=== PATIENT | male | born 1955 | race Asian ===

== ENCOUNTER 2017-05-08 19:32 | Inpatient (IN) | payer OTHER ==
[~2017-05-08] VITALS: Ht 165.1 cm; Wt 73.7 kg
[2017-05-08] MEDS ORDERED: NITROGLYCERIN (SL) 0.4 MG TAB SL PRN (20:00)
[2017-05-08 20:15] LABS: BASOPHILS % 0.4 % (0.0-2.0); EOSINOPHILS # 0.2 10^3/ul (0.0-0.5); EOSINOPHILS % 3.9 % (0.0-7.0); HEMATOCRIT 41.9 % (42.0-52.0); HEMOGLOBIN 14.1 g/dl (14.0-18.0); LYMPHOCYTES # 1.5 10^3/ul (0.8-2.9); LYMPHOCYTES % 29.8 % (15.0-51.0); MEAN CORPUSCULAR HEMOGLOBIN 32.4 pg (29.0-33.0); MEAN CORPUSCULAR HGB CONC 33.7 g/dl (32.0-37.0); MEAN CORPUSCULAR VOLUME 96.3 fl (82.0-101.0); MEAN PLATELET VOLUME 11.3 fl (7.4-10.4); MONOCYTE # 0.4 10^3/ul (0.3-0.9); MONOCYTES % 8.6 % (0.0-11.0); NEUTROPHILS % 57.1 % (39.0-77.0); PLATELET COUNT 179 10^3/UL (140-415); RED BLOOD COUNT 4.35 10^6/ul (4.70-6.10); RED CELL DISTRIBUTION WIDTH 11.4 % (11.5-14.5); WHITE BLOOD COUNT 4.9 10^3/ul (4.8-10.8)
[2017-05-08 20:31] LABS: INR 0.95; PROTIME 12.7 Sec (12.2-14.2)
[2017-05-08 20:32] LABS: PARTIAL THROMBOPLASTIN TIME 30.4 Sec (25.0-35.0)
[2017-05-08 20:44] LABS: ANION GAP 12 (8-16); BLOOD UREA NITROGEN 8 mg/dl (7-20); CALCIUM 9.4 mg/dl (8.4-10.2); CARBON DIOXIDE 29 mmol/L (21-31); CHLORIDE 103 mmol/L (97-110); CREATININE 0.83 mg/dl (0.61-1.24); GLUCOSE 105 mg/dl (70-220); POTASSIUM 3.9 mmol/L (3.5-5.1); SODIUM 140 mmol/L (135-144)
[2017-05-08] MEDS ORDERED: ASPI325T32 PO (20:44)
[2017-05-08] MEDS ORDERED: CLOP75TA4 PO (20:47)
[2017-05-08] MEDS ORDERED: ATOR40TA68 PO (20:47)
--- NOTE | 2017-05-08 20:54 | RADRPT ---
PROCEDURE: Chest x-ray CLINICAL INDICATION: Chest pain TECHNIQUE: Chest single view COMPARISON: None FINDINGS: The heart is normal in size. The pulmonary vessels are normal in caliber. The lungs are clear. Th e costophrenic angles are sharp. The visualized bony thorax is unremarkable. IMPRESSION: No acute cardiopulmonary disease. RPTAT: HH .Dax Rocha MD, Date Time Electronically viewed and signed by .Dax Rocha MD, MD on 05/08/2017 20:53 .W/
[2017-05-08 20:59] LABS: TROPONIN-I < 0.012 ng/ml (0.00-0.12)
--- NOTE | 2017-05-08 21:18 | ERA ---
ER Documentation Chief Complaint Date/Time DATE: 05/08/17 TIME: 21:15 Chief Complaint BIB RA89 FROM HOME C/O SOB AND CP X 2 DAYS HPI This is a 61-year-old male who presents to the emergency room for evaluation of shortness of breath and chest pain for the past 2 days. The patient states that his chest pain is centralized with no radiation sometimes worse with exertion. He states that in February he was having chest pain and he was taken to an emergency room in [facility] where he had 2 stents placed. The patient states that he was told that he needs to have more stents placed however they could not place a signs at that time ROS All systems reviewed and are negative except as per history of present illness. Medications Home Meds Reported Medications Clopidogrel Bisulfate* (Clopidogrel Bisulfate*) 75 Mg Tablet, 75 MG PO DAILY, # 30 TAB 05/08/17 Atorvastatin* (Atorvastatin*) 40 Mg Tablet, 40 MG PO QHS, #30 TAB 05/08/17 Aspirin* (Aspirin* EC) 325 Mg Tab, 325 MG PO DAILY, TAB 05/08/17 Allergies Allergies: Coded Allergies: No Known Allergy (Unverified , 05/08/17) PMhx/Soc History of Surgery: Yes (stentx4) Anesthesia Reaction: No Hx Neurological Disorder: No Hx Respiratory Disorders: No Hx Cardiac Disorders: No Hx Psychiatric Problems: No Hx Miscellaneous Medical Probl: No Hx Alcohol Use: No Hx Substance Use: No Hx Tobacco Use: No Smoking Status: Never smoker Physical Exam Vitals Vital Signs Date Time Temp Pulse Resp B/P Pulse Ox O2 Delivery O2 Flow Rate FiO2 05/08/17 20:32 63 139/84 05/08/17 20:17 Nasal Cannula 2 05/08/17 19:34 98.1 68 18 167/82 99 Physical Exam INITIAL VITAL SIGNS: Reviewed by me GENERAL: The patient is well developed and appropriate for usual state of health in no apparent distress HEENT: Pupils equal, round, and reactive to light. EOMI. There is no scleral icterus. NECK: C-spine is soft and supple, there is no meningismus. There is no cervical lymphadenopathy. LUNGS: Clear to auscultation bilaterally. There are no rales, wheezes or rhonchi. HEART: Regular rate and rhythm, no murmurs, clicks, rubs or gallops. ABDOMEN: Soft, non-tender, non-distended. There are bowel sounds in all four quadrants. No rebound or guarding. EXTREMITIES: There is no peripheral cyanosis or edema. No focal swelling or erythema. NEUROLOGICAL: The patient moves all four extremities with 5/5 strength. Cranial nerves II - XII are intact. Normal gait. Alert and oriented SKIN: There is no apparent rash or petechiae. HEME/LYMPHATIC: There is no evidence of excessive bruising or lymphedema. PSYCHIATRIC: The patient does not appear anxious or depressed. Result Diagram: 05/08/17200605/08/172006 Results 24 hrs Laboratory Tests Test 05/08/17 20:07 White Blood Count 4.910^3/ul Red Blood Count 4.3510^6/ul Hemoglobin 14.1g/dl Hematocrit 41.9% Mean Corpuscular Volume 96.3fl Mean Corpuscular Hemoglobin 32.4pg Mean Corpuscular Hemoglobin Concent 33.7g/dl Red Cell Distribution Width 11.4% Platelet Count 61831^3/UL Mean Platelet Volume 11.3fl Neutrophils % 57.1% Lymphocytes % 29.8% Monocytes % 8.6% Eosinophils % 3.9% Basophils % 0.4% Nucleated Red Blood Cells % 0.0/100WBC Neutrophils # (Manual) 310^3/ul Lymphocytes # 1.510^3/ul Monocytes # 0.410^3/ul Eosinophils # 0.210^3/ul Basophils # 0.010^3/ul Nucleated Red Blood Cells # 0.010^3/ul Prothrombin Time 12.7Sec Prothrombin Time Ratio 1.0 INR International Normalized Ratio 0.95 Activated Partial Thromboplast Time 30.4Sec Sodium Level 140mmol/L Potassium Level 3.9mmol/L Chloride Level 103mmol/L Carbon Dioxide Level 29mmol/L Anion Gap 12 Blood Urea Nitrogen 8mg/dl Creatinine 0.83mg/dl Glucose Level 105mg/dl Calcium Level 9.4mg/dl Troponin I < 0.012ng/ml Current Medications Medications (Trade) Dose Ordered Sig/Anderson Route PRN Reason Start Time Stop Time Status Last Admin Dose Admin Nitroglycerin (Nitroglycerin (Sl Tab) 0.4 Mg) 1 tab Q5M UP TO 3 DOSES PRN SL CHEST PAIN 05/08/17 20:00 Procedures/MDM EKG: Rate/Rhythm: [Normal Sinus Rhythm with sinus arrhythmia] QRS, ST, T-waves: [No changes consistent w/ acute ischemia] Impression: Was normal sinus rhythm with sinus arrhythmia Chest X-ray 1V Interpreted by me: Soft Tissue: No acute abnormalities Bones: No acute abnormalities Mediastinum/Cardiac Silhouette/Lungs: [No acute abnormalities] This 61-year-old male presents to the ER for evaluation of chest pain and minor shortness of breath. This patient does have a significant cardiac history with 2 stents placed in the past 2 months. The patient did take a full dose aspirin before arriving in the emergency room. His pain is minorly relieved with sublingual nitroglycerin. His first troponin is negative. 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
[2017-05-08] MEDS ORDERED: ONDANSETRON 4 MG INJ IV PRN (21:30)
[2017-05-08] MEDS ORDERED: ACETAMINOPHEN 325 MG TAB PO PRN ×2 (21:30→23:30)
[2017-05-08 22:30] VITALS: Ht 165.1 cm; Wt 73.7 kg
[2017-05-08 22:44] VITALS: PULSE 56
[2017-05-08] MEDS ORDERED: LORAZEPAM 2 MG INJ IV PRN (23:30)
[2017-05-09] VITALS (15 sets, daily range): BP systolic 117–142; BP diastolic 63–80; PULSE 55–68; RESP 16–20
[2017-05-09 03:40] LABS: TROPONIN-I 0.015 ng/ml (0.00-0.12)
[2017-05-09 03:53] LABS: CK-MB 0.78 ng/ml (0.0-2.4)
--- NOTE | 2017-05-09 05:38 | HP ---
Date/Time of Note Date/Time of Note DATE: 05/09/17 TIME: 05:24 Assessment/Plan VTE Prophylaxis VTE Prophylaxis Intervention: heparin Lines/Catheters IV Catheter Type (from [facility]): [place] Assessment/Plan Assessment/Plan 1. Chest pain, rule out ACS -Continue telemetry monitoring -Continue home Plavix, aspirin and statin. Will add as needed nitro and morphine. If heart rate allows, will start beta-olive -Supplemental oxygen -2D echo and cardiology consult -Cardiac cath report is at the bedside. 2. History of CAD with stent -See #1 3. History of sleep apnea -Continue CPAP with home settings 4. History of dyslipidemia -Continue statin HPI/ROS Admit Date/Time Admit Date/Time May 08, 2017 at 21:15 Hx of Present Illness This is a 61-year-old male with a history of CAD with stent ID, dyslipidemia, sleep apnea on CPAP who presented to the emergency department complaining of chest pain and shortness of breath. Chest pain is substernal, with no radiation and it is worse with exertion. Denied nausea, vomiting or diaphoresis. Patient reported that 2 months ago he was hospitalized for chest pain in [place] where he underwent PCI with placement of 4 stents including to RCA for 100% occlusion. He said he was told that he needs additional cardiac stents for residual disease and LAD and circumflex(it was not done at that time because it was felt that the patient had already received a good amount of contrast). He has been compliant with his aspirin, Plavix and statin. When he presented to the ER, BP 167/82 with a heart rate of 68, but heart rate has been noted to be at times as low as in the 50s. EKG shows arrhythmia. First troponin is negative. Chest x-ray with no active cardiopulmonary disease. Chest pain did improve with SL nitro, but not completely relieved. . PMH/Family/Social Past Medical History Medical History: coronary artery disease, high cholesterol Past Surgical History Past Surgical Hx: other (Cardiac stent placement) Social History Alcohol Use: occasionally Smoking Status: Never smoker Drug Use: none Exam/Review of Systems Vital Signs Vitals Vital Signs Date Time Temp Pulse Resp B/P Pulse Ox O2 Delivery O2 Flow Rate FiO2 05/09/17 04:32 97.5 86 16 134/71 100 05/08/17 21:52 Room Air 05/08/17 20:17 2 Exam Constitutional: alert, oriented, well developed Head: atraumatic, normocephalic Eyes: EOMI, PERRL Respiratory: clear to auscultation, normal air movement Cardiovascular: other (Bradycardic with regular rhythm) Gastrointestinal: non-tender, soft Extremities: normal pulses Labs Result Diagram: 05/08/17200605/08/172006 Medications Medications Current Medications Aspirin (Ecotrin) 325 mg DAILY PO ; Start 05/09/17 at 09:00 Atorvastatin Calcium (Lipitor) 40 mg QHS PO ; Start 05/09/17 at 21:00 Clopidogrel Bisulfate (plaVIX) 75 mg DAILY PO ; Start 05/09/17 at 09:00 Acetaminophen (Tylenol Tab) 650 mg Q6H PRN PO PAIN AND OR ELEVATED TEMP; Start 05/08/17 at 23:30 Lorazepam (Ativan) 1 mg Q2 PRN IV ANXIETY; Start 05/08/17 at 23:30 MIK JUNIOR MD May 09, 2017 05:36
[2017-05-09 07:01] LABS: BASOPHILS % 0.4 % (0.0-2.0); EOSINOPHILS # 0.2 10^3/ul (0.0-0.5); EOSINOPHILS % 4.2 % (0.0-7.0); HEMATOCRIT 40.9 % (42.0-52.0); HEMOGLOBIN 13.7 g/dl (14.0-18.0); LYMPHOCYTES # 1.6 10^3/ul (0.8-2.9); LYMPHOCYTES % 33.3 % (15.0-51.0); MEAN CORPUSCULAR HEMOGLOBIN 32.1 pg (29.0-33.0); MEAN CORPUSCULAR HGB CONC 33.5 g/dl (32.0-37.0); MEAN CORPUSCULAR VOLUME 95.8 fl (82.0-101.0); MEAN PLATELET VOLUME 11.7 fl (7.4-10.4); MONOCYTE # 0.3 10^3/ul (0.3-0.9); MONOCYTES % 6.7 % (0.0-11.0); PLATELET COUNT 186 10^3/UL (140-415); RED BLOOD COUNT 4.27 10^6/ul (4.70-6.10); RED CELL DISTRIBUTION WIDTH 11.9 % (11.5-14.5); WHITE BLOOD COUNT 4.8 10^3/ul (4.8-10.8)
[2017-05-09 07:22] LABS: ALBUMIN 3.8 g/dl (3.3-4.9); ALBUMIN/GLOBULIN RATIO 1.22; BILIRUBIN,INDIRECT 0.6 mg/dl (0-1.1); BILIRUBIN,TOTAL 0.6 mg/dl (0.2-1.3); CALCIUM 9.3 mg/dl (8.4-10.2); CHOL/HDL RATIO 2.6 RATIO; CREATININE 0.81 mg/dl (0.61-1.24); POTASSIUM 3.7 mmol/L (3.5-5.1); TOTAL PROTEIN 6.9 g/dl (6.1-8.1); TROPONIN-I 0.015 ng/ml (0.00-0.12)
[2017-05-09 07:23] LABS: CK-MB 0.68 ng/ml (0.0-2.4)
[2017-05-09 07:45] LABS: THYROID STIMULATING HORMONE 1.4 MIU/L (0.465-4.680)
[2017-05-09] MEDS: CLOPIDOGREL 75 MG TAB PO SCH (08:19)
[2017-05-09] MEDS ORDERED: ASPIRIN (EC) 325 MG TAB PO SCH (09:00)
--- NOTE | 2017-05-09 10:47 | RADRPT ---
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 Physician: MIK JUNIOR Quality: Good Procedures: Transthoracic echocardiogram with complete 2D, M-Mode, and doppler examination. Indications: Chest Pain, recent stent. 2D/M Mode Doppler Measurement Value Normal Ranges Measurement Value Normal Ranges LVIDd 2D 5.3 3.5 - 5.6 cm AV Peak Riaz 1.2 m/sec LVIDs 2D 3.6 2.1 - 4.1 cm AV Peak PG 5.0 mmHg FS 2D 32.1 % LVOT Peak Riaz 0.8 m/sec LVPWd 2D 0.8 0.6 - 1.1 cm LVOT Peak PG 3.0 mmHg IVSd 2D 0.8 0.6 - 1.1 cm MV E Peak Riaz 0.6 m/sec IVS/LVPW 2D 1.0 MV A Peak Riaz 0.6 m/sec AoR Diam 2D 3.1 2.0 - 3.7 cm MV E/A 0.9 LA/Ao 2D 1 0 - 1 MV Decel Time 268 msec EDV 2D 146.0 cm3 MV E/A 0.9 ESV 2D 45.9 cm3 TR Peak Riaz 1.7 m/sec LA Dimen 2D 3.2 2.3 - 4.0 cm TR Peak PG 12.0 mmHg RVSP 15.0 mmHg Findings Left Ventricle: Normal left ventricular systolic function. Normal left ventricular cavity size. Normal left ventricular wall thickness. Ejection fraction is visually estimated at 55 %. Tissue Doppler/Mitral Doppler indices are consistent with impaired relaxation (Stage I diastolic dysfunction). Right Ventricle: Normal right ventricular size. Normal right ventricular systolic function. Left Atrium: The left atrium is normal in size. Right Atrium: The right atrium is normal in size. Mitral Valve: Mitral valve leaflets appear mildly thickened. Mild mitral annular calcification. Trace mitral regurgitation. Aortic Valve: Normal appearance of the aortic valve. No significant aortic stenosis or insufficiency. Tricuspid Valve: Normal appearance of the tricuspid valve. Estimated peak PA systolic pressure 15 mmHg. There is trace tricuspid regurgitation. Pulmonic Valve: Normal pulmonic valve appearance. Pericardium: Normal pericardium with no significant pericardial effusion. Aorta: Normal aortic root. IVC: Normal size and normal respiratory collapse consistent with normal right atrial pressure. Conclusions Normal left ventricular systolic function. Normal left ventricular cavity size. Normal left ventricular wall thickness. Ejection fraction is visually estimated at 55 %. Tissue Doppler/Mitral Doppler indices are consistent with impaired relaxation (Stage I diastolic dysfunction). Normal right ventricular size. Normal right ventricular systolic function. The left atrium is normal in size. The right atrium is normal in size. No significant valvular stenosis or regurgitation seen. Normal pericardium with no significant pericardial effusion. Electronically Signed By: Maynor Amanda 09-May-2017 10:46:39 -0700 Patient Name: MIKE MUNOZ Study Date: 09-May-2017 [id number]
--- NOTE | 2017-05-09 12:48 | CONS ---
Date/Time of Note Date/Time of Note DATE: 05/09/17 TIME: 12:42 Assessment/Plan Assessment/Plan Additional Assessment/Plan Shortness of breath and chest pain CAD with history of PCI Preserved ejection fraction Hypertension -Patient with symptoms of shortness of breath occasion with exertion sometimes at rest as well with atypical chest pain. As per the patient, he is awaiting further PCI of his other vessels. Will review cath report, so far serial cardiac enzymes remain negative, ECG without any significant ischemic abnormalities. Echocardiogram with preserved ejection fraction. Would continue dual antiplatelet therapy, statin therapy, beta-blockers heart rate and blood pressure permits. Consultation Date/Type/Reason Admit Date/Time May 08, 2017 at 21:15 Type of Consultation: cv Reason for Consultation Shortness of breath and chest pain Hx of Present Illness This is a 61-year-old male with past medical history of coronary artery disease with recent PCI a few months ago, hypertension who presents with complaints of chest pain and shortness of breath. Patient states he had stent placement a few months ago emergently secondary to myocardial infarction. At that time, he was told he had other vessels that needed intervention. 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 He has been awaiting insurance approval for further testing before planning to do intervention. In the interim, patient has been complaining of shortness of breath. Shortness of breath is not always associated with activity but at times is. He feels he cannot take in a deep breath. He also complains of a sharp-like chest discomfort on the left side. This chest discomfort is not associated with activity. He denies any dizziness or lightheadedness. Symptoms of shortness of breath worsened yesterday and for this reason he came to the emergency room for further evaluation and care. He states he has been compliant with his medications, especially aspirin and Plavix. 12 point review of systems was performed with all pertinent positives and negatives mentioned above and all else is negative Past Medical History Medical History: coronary artery disease, high cholesterol, hypertension Past Surgical History Past Surgical Hx: other (Cardiac stent placement) Family History Significant Family History: no pertinent family hx Social History Alcohol Use: occasionally Smoking Status: Never smoker Drug Use: none Exam/Review of Systems Vital Signs Vitals Vital Signs Date Time Temp Pulse Resp B/P Pulse Ox O2 Delivery O2 Flow Rate FiO2 05/09/17 12:13 68 05/09/17 11:13 98.0 18 141/75 97 8/18/17 08:00 Nasal Cannula 2.0 Intake and Output 05/08/17 05/08/17 05/09/17 15:00 23:00 07:00 Intake Total 700 ml Balance 700 ml Exam No apparent distress Constitutional: alert, oriented Head: normocephalic Neck: supple Respiratory: other (Coarse breath sounds bilaterally, no wheezing) Cardiovascular: other (S1-S2 heard), regular rate and rhythm Gastrointestinal: bowel sounds, non-tender, soft Extremities: other (No edema) Results Result Diagram: 05/09/1760405/09/17604 Results 24 hrs Laboratory Tests Test 05/08/17 20:07 05/09/17 02:42 05/09/17 06:05 White Blood Count 4.9 4.8 Red Blood Count 4.35 L 4.27 L Hemoglobin 14.1 13.7 L Hematocrit 41.9 L 40.9 L Mean Corpuscular Volume 96.3 95.8 Mean Corpuscular Hemoglobin 32.4 32.1 Mean Corpuscular Hemoglobin Concent 33.7 33.5 Red Cell Distribution Width 11.4 L 11.9 Platelet Count 179 186 Mean Platelet Volume 11.3 H 11.7 H Neutrophils % 57.1 55.0 Lymphocytes % 29.8 33.3 Monocytes % 8.6 6.7 Eosinophils % 3.9 4.2 Basophils % 0.4 0.4 Nucleated Red Blood Cells % 0.0 0.0 Neutrophils # (Manual) 3 3 Lymphocytes # 1.5 1.6 Monocytes # 0.4 0.3 Eosinophils # 0.2 0.2 Basophils # 0.0 0.0 Nucleated Red Blood Cells # 0.0 0.0 Prothrombin Time 12.7 Prothrombin Time Ratio 1.0 INR International Normalized Ratio 0.95 Activated Partial Thromboplast Time 30.4 Sodium Level 140 146 H Potassium Level 3.9 3.7 Chloride Level 103 103 Carbon Dioxide Level 29 27 Anion Gap 12 20 #H Blood Urea Nitrogen 8 10 Creatinine 0.83 0.81 Glucose Level 105 122 Calcium Level 9.4 9.3 Troponin I < 0.012 0.015 0.015 Creatine Kinase 50 50 Creatine Kinase Index 1.6 1.4 Creatinine Kinase MB (Mass) 0.78 0.68 Hemoglobin A1c 5.9 Total Bilirubin 0.6 Direct Bilirubin 0.00 Indirect Bilirubin 0.6 Aspartate Amino Transf (AST/SGOT) 35 Alanine Aminotransferase (ALT/SGPT) 39 Alkaline Phosphatase 67 Total Protein 6.9 Albumin 3.8 Globulin 3.10 Albumin/Globulin Ratio 1.22 Triglycerides Level 121 Cholesterol Level 86 L LDL Cholesterol, Calculated 29 HDL Cholesterol 33 Cholesterol/HDL Ratio 2.6 Thyroid Stimulating Hormone (TSH) 1.400 Medications Medications Current Medications Aspirin (Ecotrin) 325 mg DAILY PO Last administered on 05/09/17 08:19; Admin Dose 325 MG; Start 05/09/17 at 09:00 Atorvastatin Calcium (Lipitor) 40 mg QHS PO ; Start 05/09/17 at 21:00 Clopidogrel Bisulfate (plaVIX) 75 mg DAILY PO Last administered on 05/09/17 08 :19; Admin Dose 75 MG; Start 05/09/17 at 09:00 Acetaminophen (Tylenol Tab) 650 mg Q6H PRN PO PAIN AND OR ELEVATED TEMP; Start 05/08/17 at 23:30 Lorazepam (Ativan) 1 mg Q2 PRN IV ANXIETY; Start 05/08/17 at 23:30 Procedures Procedures ECG demonstrates sinus rhythm, incomplete right bundle branch block, nonspecific T-wave abnormalities Maynor Amanda DO May 09, 2017 12:47
[2017-05-09] MEDS: LISINOPRIL 5 MG TAB PO SCH (14:19)
[2017-05-09] MEDS ORDERED: MIDAZOLAM 1 MG/ML 2 ML INJ ONE (17:56)
[2017-05-09] MEDS ORDERED: IODIXANOL LOCM 100 ML BTL ONE ×2 (17:56→18:50)
[2017-05-09] MEDS ORDERED: HEPARIN 1000 UNITS/NS (A-LINE) 1,000 ML ONE (17:56)
[2017-05-09] MEDS ORDERED: LIDOCAINE 1% (MDV) 20 ML INJ ONE (17:56)
[2017-05-09] MEDS ORDERED: VERAPAMIL 5 MG INJ ONE (17:57)
[2017-05-09] MEDS ORDERED: FENTAnyl 50 MCG/ML VIAL ONE (18:49)
[2017-05-09] MEDS ORDERED: CLOPIDOGREL 300 MG TAB ONE (19:45)
[2017-05-09] MEDS ORDERED: SOD CHLORIDE 0.9% 1,000 ML IV SCH (19:53)
--- NOTE | 2017-05-09 20:10 | OPR ---
Date/Time of Note Date/Time of Note DATE: 05/09/17 TIME: 20:01 Operative Report Procedure Date: May 09, 2017 Indications Fish Seiner: Lorrie Araiza MD Indication: ACS. known severe CAD Procure performed: #1 left heart catheterization and selective right and left coronary angiogram. #2 Right femoral angiogram 3. Successful PTCA and stenting of distal left circumflex artery using a 2.5 x 20 mm Synergy drug-eluting stent, and proximal./ mid left cecum was artery using a 2.75 x 24 mm Synergy drug-eluting stent. 4. Moderate sedation for more than 90 minutes Findings: 1. Left main: is long and has 30% ostial stenosis. it birfurcates to LAD & LCX. 2. LAD: has 50 % stenosis at proximal LAD, and 90 % stenosis at mid LAD, at the site of a moderate-sized diagonal.. 3. Left circumflex artery: is nondominant. it has 95% % stenosis right before the takeoff of the obtuse marginal 1. Distal left circumflex artery also had another 80% calcified lesion. After successful PTCA stenting of this lesion was delivered no significant residual stenosis left. 4. RCA: is dominant. it has 20% stenosis. Previous 4 stents are otherwise are patent. Procedure in detail: Written informed consent with obtained after risks benefits and alternatives discussed with the patient in detail. risks including but not limited to risk of infection vascular complications, bleeding complications, OH stroke arrhythmia renal failure at even were discussed with the patient in detail. Patient was brought into the cardiac medical lab specialist and placed in supine position. Right and left groin area was prepped and draped in regular sterile fashion and then he was in anesthetized using 1% lidocaine. Right femoral artery was cannulated and using modified seldinger technique a 6 [place] sheath was placed in the right femoral artery. Right femoral angiogram was performed. JL4 catheter was advanced and engaged into the left main coronary artery and angiographic view was obtained. The JR4 catheter was advanced and engaged right coronary artery angiographic view was obtained. Pigtail was advanced to engage the left ventricle hemodynamics as recorded by pullback aortic pressure was measured. At this time we decided to perform PCI of the left circumflex artery. A Voda 3- 1/2 guiding head was advanced to engage the left cecum artery. BMW wire was used and advanced across the lesion and placed distal to the OM1., Under BMW wire was used and advanced across into the distal left circumflex artery.. I used a 2.5 x 12 mm balloon which was placed across the lesion and predilated the vessel at proximal/ mid LCX. Then I used a 2 oh balloon and predilated the distal left circumflex artery. Then the 2 5 5 x 12 mm balloon was placed across the proximal lesion into the obtuse marginal wound in this area was again angioplastied and predilated. I tried to advance a 2.5 x 24 mm drug- eluting stent across the distal left circumflex artery however it could not cross. I dilated this vessel again with a 2 5 but he again could not cross. Finally I had to use a 2.5 x 12 mm noncompliant balloon and multiple times dilated the distal left circumflex artery. The other wire with the restoration officer to be redirected used as a rosa isela wire. Finally was able to advance the stent across the lesion. The stent was deployed at 12 tay after the rosa isela wire was pulled back. The second BMW was redirected into the obtuse marginal 1 to protect this vessel.. Then I used a 2.75 x 24 mm Synergy drug-eluting stent which was placed across the lesion at proximal and midl LCX and deployed at 12 almost tay. The stent balloon was advanced and overlapping area was dilated at 12 tay. Finally a 3.25 x 8 noncompliant balloon was used and postdilated the stent and up to 18 tay. Final angiographic view was obtained which showed LIDYA-3 flow no evidence of dissection and no significant residual stenosis at the site of the stent. Patient tolerated the procedure well with no complication. Patient is to be transferred to ICU in stable condition. Conclusions: Successful PTCA stenting of the left circumflex artery artery from 95% stenosis to no significant residual stenosis using a 2.5 x 20 and 2.75 x 24 mm Synergy drug-eluting stents. Recommendations: Aggressive medical therapy. aspirin indefinitely dual antiplatlet therapy with Plavix ICU care overnight. PCI of the LAD at a later time, either as an outpatient if the patient is asymptomatic or in a few days as an inpatient if the patient remains symptomatic. LORRIE ARAIZA MD [facility] LORRIE ARAIZA MD May 09, 2017 20:10
[2017-05-09] MEDS ORDERED: NITROGLYCERIN (IC) 100 MCG/ML INJ ONE (20:31)
[2017-05-09] MEDS: METOPROLOL 25 MG TAB PO SCH (21:00)
[2017-05-09] MEDS: ATORVASTATIN 40 MG TAB PO SCH (21:00)
[2017-05-10] VITALS (20 sets, daily range): BP systolic 84–127; BP diastolic 59–75; PULSE 54–77; RESP 10–21
[2017-05-10 06:01] LABS: BASOPHILS % 0.5 % (0.0-2.0); EOSINOPHILS # 0.1 10^3/ul (0.0-0.5); EOSINOPHILS % 2.1 % (0.0-7.0); HEMATOCRIT 40.4 % (42.0-52.0); HEMOGLOBIN 13.3 g/dl (14.0-18.0); LYMPHOCYTES # 1.1 10^3/ul (0.8-2.9); LYMPHOCYTES % 16.5 % (15.0-51.0); MEAN CORPUSCULAR HEMOGLOBIN 31.8 pg (29.0-33.0); MEAN CORPUSCULAR HGB CONC 32.9 g/dl (32.0-37.0); MEAN CORPUSCULAR VOLUME 96.7 fl (82.0-101.0); MEAN PLATELET VOLUME 11.5 fl (7.4-10.4); MONOCYTE # 0.4 10^3/ul (0.3-0.9); MONOCYTES % 5.5 % (0.0-11.0); NEUTROPHILS % 75.1 % (39.0-77.0); PLATELET COUNT 190 10^3/UL (140-415); RED BLOOD COUNT 4.18 10^6/ul (4.70-6.10); RED CELL DISTRIBUTION WIDTH 11.6 % (11.5-14.5); WHITE BLOOD COUNT 6.6 10^3/ul (4.8-10.8)
[2017-05-10 06:31] LABS: ALBUMIN 3.7 g/dl (3.3-4.9); ALBUMIN/GLOBULIN RATIO 1.27; CALCIUM 8.7 mg/dl (8.4-10.2); CREATININE 0.77 mg/dl (0.61-1.24); POTASSIUM 3.9 mmol/L (3.5-5.1); TOTAL PROTEIN 6.6 g/dl (6.1-8.1)
--- NOTE | 2017-05-10 07:46 | PN ---
Date/Time of Note Date/Time of Note DATE: 05/10/17 TIME: 07:44 Assessment/Plan VTE Prophylaxis VTE Prophylaxis Intervention: SCD's Lines/Catheters IV Catheter Type (from Nrs): A Line Urinary Cath still in place: No Assessment/Plan Assessment/Plan Shortness of breath and chest pain CAD with history of PCI Preserved ejection fraction Hypertension -The patient s/p PCI of the CX - Echocardiogram with preserved ejection fraction. - Would continue dual antiplatelet therapy, statin therapy, beta-blockers heart rate and blood pressure permits. -Possible PCI of the LAD electively, unless develops symptoms -Ok to tele Subjective 24 Hr Interval Summary Free Text/Dictation The patient doing well post PCI Exam/Review of Systems Vital Signs Vitals Vital Signs Date Time Temp Pulse Resp B/P Pulse Ox O2 Delivery O2 Flow Rate FiO2 05/10/17 06:07 Nasal Cannula 05/10/17 06:00 60 12 103/62 100 05/10/17 04:00 98.4 05/10/17 01:40 2.0 05/09/17 23:12 30 Intake and Output 05/09/17 05/09/17 05/10/17 15:00 23:00 07:00 Intake Total 650 ml 705 ml Output Total 600 ml Balance 650 ml 105 ml Results Result Diagram: 05/10/17 0503 05/10/17 0503 Results 24 hrs Laboratory Tests Test 05/10/17 05:03 White Blood Count 6.6 # Red Blood Count 4.18 L Hemoglobin 13.3 L Hematocrit 40.4 L Mean Corpuscular Volume 96.7 Mean Corpuscular Hemoglobin 31.8 Mean Corpuscular Hemoglobin Concent 32.9 Red Cell Distribution Width 11.6 Platelet Count 190 Mean Platelet Volume 11.5 H Neutrophils % 75.1 Lymphocytes % 16.5 Monocytes % 5.5 Eosinophils % 2.1 Basophils % 0.5 Nucleated Red Blood Cells % 0.0 Neutrophils # (Manual) 5 Lymphocytes # 1.1 Monocytes # 0.4 Eosinophils # 0.1 Basophils # 0.0 Nucleated Red Blood Cells # 0.0 Sodium Level 143 Potassium Level 3.9 Chloride Level 102 Carbon Dioxide Level 29 Anion Gap 16 Blood Urea Nitrogen 12 Creatinine 0.77 Glucose Level 106 Calcium Level 8.7 Total Bilirubin 1.0 Direct Bilirubin 0.00 Indirect Bilirubin 1.0 Aspartate Amino Transf (AST/SGOT) 28 Alanine Aminotransferase (ALT/SGPT) 49 Alkaline Phosphatase 69 Total Protein 6.6 Albumin 3.7 Globulin 2.90 Albumin/Globulin Ratio 1.27 Medications Medications Current Medications Atorvastatin Calcium (Lipitor) 40 mg QHS PO ; Start 05/09/17 at 21:00 Clopidogrel Bisulfate (plaVIX) 75 mg DAILY PO Last administered on 05/09/17 08 :19; Admin Dose 75 MG; Start 05/09/17 at 09:00 Acetaminophen (Tylenol Tab) 650 mg Q6H PRN PO PAIN AND OR ELEVATED TEMP; Start 05/08/17 at 23:30 Lorazepam (Ativan) 1 mg Q2 PRN IV ANXIETY; Start 05/08/17 at 23:30 Aspirin (Halfprin) 81 mg DAILY PO ; Start 05/10/17 at 09:00 Metoprolol Tartrate (Lopressor) 12.5 mg BID PO ; Start 05/09/17 at 21:00 Lisinopril (Zestril) 2.5 mg DAILY PO Last administered on 05/09/17 14:19; Admin Dose 2.5 MG; Start 05/09/17 at 13:00 BEN CALIXTO MD May 10, 2017 07:46
[2017-05-10] MEDS: METOPROLOL 25 MG TAB PO SCH ×2 (09:00→21:00)
[2017-05-10] MEDS: LISINOPRIL 5 MG TAB PO SCH (09:56)
[2017-05-10] MEDS: ASPIRIN (EC) 81 MG TAB PO SCH (09:57)
[2017-05-10] MEDS: CLOPIDOGREL 75 MG TAB PO SCH (09:57)
--- NOTE | 2017-05-10 10:56 | PN ---
Date/Time of Note Date/Time of Note DATE: 05/10/17 TIME: 10:53 Assessment/Plan VTE Prophylaxis VTE Prophylaxis Intervention: ambulation Lines/Catheters Urinary Cath still in place: No Assessment/Plan Chief Complaint/Hosp Course 1. Chest pain status post PCI of the circumflex - Echocardiogram with preserved ejection fraction. -Continue dual antiplatelet therapy, statin therapy, beta-blockers heart rate and blood pressure permits. -Possible PCI of the LAD electively, unless develops symptoms -Downgrade to telemetry 2. History of CAD with stent -See #1 3. History of sleep apnea -Continue CPAP with home settings 4. History of dyslipidemia -Continue statin Prophylaxis: Ambulation Problems: Subjective 24 Hr Interval Summary Constitutional: no complaints Exam/Review of Systems Vital Signs Vitals Vital Signs Date Time Temp Pulse Resp B/P Pulse Ox O2 Delivery O2 Flow Rate FiO2 05/10/17 08:00 63 05/10/17 06:07 Nasal Cannula 05/10/17 06:00 12 103/62 100 05/10/17 04:00 98.4 05/10/17 01:40 2.0 05/09/17 23:12 30 Intake and Output 05/09/17 05/09/17 05/10/17 15:00 23:00 07:00 Intake Total 650 ml 705 ml Output Total 600 ml Balance 650 ml 105 ml Exam Constitutional: alert, oriented Respiratory: clear to auscultation Cardiovascular: regular rate and rhythm Gastrointestinal: soft, No distended Musculoskeletal: nl extremities to inspection Results Result Diagram: 05/10/17 0503 05/10/17 0503 Results 24 hrs Laboratory Tests Test 05/10/17 05:03 White Blood Count 6.6 # Red Blood Count 4.18 L Hemoglobin 13.3 L Hematocrit 40.4 L Mean Corpuscular Volume 96.7 Mean Corpuscular Hemoglobin 31.8 Mean Corpuscular Hemoglobin Concent 32.9 Red Cell Distribution Width 11.6 Platelet Count 190 Mean Platelet Volume 11.5 H Neutrophils % 75.1 Lymphocytes % 16.5 Monocytes % 5.5 Eosinophils % 2.1 Basophils % 0.5 Nucleated Red Blood Cells % 0.0 Neutrophils # (Manual) 5 Lymphocytes # 1.1 Monocytes # 0.4 Eosinophils # 0.1 Basophils # 0.0 Nucleated Red Blood Cells # 0.0 Sodium Level 143 Potassium Level 3.9 Chloride Level 102 Carbon Dioxide Level 29 Anion Gap 16 Blood Urea Nitrogen 12 Creatinine 0.77 Glucose Level 106 Calcium Level 8.7 Total Bilirubin 1.0 Direct Bilirubin 0.00 Indirect Bilirubin 1.0 Aspartate Amino Transf (AST/SGOT) 28 Alanine Aminotransferase (ALT/SGPT) 49 Alkaline Phosphatase 69 Total Protein 6.6 Albumin 3.7 Globulin 2.90 Albumin/Globulin Ratio 1.27 Medications Medications Current Medications Atorvastatin Calcium (Lipitor) 40 mg QHS PO ; Start 05/09/17 at 21:00 Clopidogrel Bisulfate (plaVIX) 75 mg DAILY PO Last administered on 05/10/17 09 :57; Admin Dose 75 MG; Start 05/09/17 at 09:00 Acetaminophen (Tylenol Tab) 650 mg Q6H PRN PO PAIN AND OR ELEVATED TEMP; Start 05/08/17 at 23:30 Lorazepam (Ativan) 1 mg Q2 PRN IV ANXIETY; Start 05/08/17 at 23:30 Aspirin (Halfprin) 81 mg DAILY PO Last administered on 05/10/17 09:57; Admin Dose 81 MG; Start 05/10/17 at 09:00 Metoprolol Tartrate (Lopressor) 12.5 mg BID PO ; Start 05/09/17 at 21:00 Lisinopril (Zestril) 2.5 mg DAILY PO Last administered on 05/10/17 09:56; Admin Dose 2.5 MG; Start 05/09/17 at 13:00 SHIELA MCLEOD May 10, 2017 10:56
--- NOTE | 2017-05-10 13:52 | RADRPT ---
Vent Rate: 60 bpm RR Interval: 0 msec SD Interval: 196 msec QRS Duration: 104 msec QT Interval: 424 msec QTC Interval: 424 msec P-R-T [place]: 62 - -5 - 19 degrees Normal sinus rhythm Baseline artifact Possible anterollateral T wave abnormality Abnormal ECG Electronically Signed By: Sukhdev Bull [id number]
[2017-05-10] MEDS: ATORVASTATIN 40 MG TAB PO SCH (21:13)
[2017-05-11] VITALS (7 sets, daily range): BP systolic 109–124; BP diastolic 60–71; PULSE 59–86; RESP 17
[2017-05-11 06:52] LABS: BASOPHILS % 0.5 % (0.0-2.0); EOSINOPHILS # 0.3 10^3/ul (0.0-0.5); EOSINOPHILS % 5.2 % (0.0-7.0); HEMATOCRIT 40.5 % (42.0-52.0); HEMOGLOBIN 13.4 g/dl (14.0-18.0); LYMPHOCYTES # 1.3 10^3/ul (0.8-2.9); LYMPHOCYTES % 23.1 % (15.0-51.0); MEAN CORPUSCULAR HEMOGLOBIN 31.4 pg (29.0-33.0); MEAN CORPUSCULAR HGB CONC 33.1 g/dl (32.0-37.0); MEAN CORPUSCULAR VOLUME 94.8 fl (82.0-101.0); MEAN PLATELET VOLUME 11.5 fl (7.4-10.4); MONOCYTE # 0.5 10^3/ul (0.3-0.9); MONOCYTES % 8.5 % (0.0-11.0); NEUTROPHILS % 62.4 % (39.0-77.0); PLATELET COUNT 174 10^3/UL (140-415); RED BLOOD COUNT 4.27 10^6/ul (4.70-6.10); RED CELL DISTRIBUTION WIDTH 11.8 % (11.5-14.5); WHITE BLOOD COUNT 5.8 10^3/ul (4.8-10.8)
[2017-05-11 07:10] LABS: CALCIUM 9.2 mg/dl (8.4-10.2); CREATININE 0.79 mg/dl (0.61-1.24); POTASSIUM 4.1 mmol/L (3.5-5.1)
--- NOTE | 2017-05-11 08:42 | CONS ---
Date/Time of Note Date/Time of Note DATE: 05/11/17 TIME: 08:37 Consultation Date/Type/Reason Admit Date/Time May 08, 2017 at 21:15 Initial Consult Date Type of Consultation: cv 24 HR Interval Summary Free Text/Dictation Shortness of breath and chest pain CAD with history of PCI Preserved ejection fraction Hypertension -The patient s/p PCI of the CX feels better - Echocardiogram with preserved ejection fraction. - Would continue dual antiplatelet therapy, statin therapy, beta-blockers heart rate and blood pressure permits. out patient staged PCI can be discharged only if certain pt has access to aspirin and plavix outpatient follow up with Dr. Amanda Constitutional: no complaints Exam/Review of Systems Vital Signs Vitals Vital Signs Date Time Temp Pulse Resp B/P Pulse Ox O2 Delivery O2 Flow Rate FiO2 05/11/17 08:27 98.1 63 17 113/70 95 05/10/17 17:37 Room Air 05/10/17 09:00 2.0 05/09/17 23:12 30 Intake and Output 05/10/17 05/10/17 05/11/17 15:00 23:00 07:00 Intake Total 840 ml 500 ml Balance 840 ml 500 ml Exam Constitutional: alert, oriented Psych: no complaints Respiratory: clear to auscultation Cardiovascular: regular rate and rhythm Gastrointestinal: non-tender, soft Extremities: clubbing (no hematoma), edema, normal pulses Results Result Diagram: 05/11/17 0556 05/11/17 0556 Results 24 hrs Laboratory Tests Test 05/11/17 05:56 White Blood Count 5.8 Red Blood Count 4.27 L Hemoglobin 13.4 L Hematocrit 40.5 L Mean Corpuscular Volume 94.8 Mean Corpuscular Hemoglobin 31.4 Mean Corpuscular Hemoglobin Concent 33.1 Red Cell Distribution Width 11.8 Platelet Count 174 Mean Platelet Volume 11.5 H Neutrophils % 62.4 Lymphocytes % 23.1 Monocytes % 8.5 Eosinophils % 5.2 Basophils % 0.5 Nucleated Red Blood Cells % 0.0 Neutrophils # (Manual) 4 Lymphocytes # 1.3 Monocytes # 0.5 Eosinophils # 0.3 Basophils # 0.0 Nucleated Red Blood Cells # 0.0 Sodium Level 142 Potassium Level 4.1 Chloride Level 101 Carbon Dioxide Level 28 Anion Gap 17 H Blood Urea Nitrogen 12 Creatinine 0.79 Glucose Level 115 Calcium Level 9.2 Medications Medications Current Medications Atorvastatin Calcium (Lipitor) 40 mg QHS PO Last administered on 05/10/17 21: 13; Admin Dose 40 MG; Start 05/09/17 at 21:00 Clopidogrel Bisulfate (plaVIX) 75 mg DAILY PO Last administered on 05/10/17 09 :57; Admin Dose 75 MG; Start 05/09/17 at 09:00 Acetaminophen (Tylenol Tab) 650 mg Q6H PRN PO PAIN AND OR ELEVATED TEMP; Start 05/08/17 at 23:30 Lorazepam (Ativan) 1 mg Q2 PRN IV ANXIETY; Start 05/08/17 at 23:30 Aspirin (Halfprin) 81 mg DAILY PO Last administered on 05/10/17 09:57; Admin Dose 81 MG; Start 05/10/17 at 09:00 Metoprolol Tartrate (Lopressor) 12.5 mg BID PO ; Start 05/09/17 at 21:00 Lisinopril (Zestril) 2.5 mg DAILY PO Last administered on 05/10/17 09:56; Admin Dose 2.5 MG; Start 05/09/17 at 13:00 JESSE ALFORD MD May 11, 2017 08:42
[2017-05-11] MEDS: CLOPIDOGREL 75 MG TAB PO SCH (09:20)
[2017-05-11] MEDS: ASPIRIN (EC) 81 MG TAB PO SCH (09:20)
[2017-05-11] MEDS: LISINOPRIL 5 MG TAB PO SCH (09:21)
[2017-05-11] MEDS: METOPROLOL 25 MG TAB PO SCH (09:21)
[2017-05-11] MEDS ORDERED: METO-448 PO (14:28)
--- NOTE | 2017-05-11 14:29 | PDOCDIS ---
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
--- NOTE | 2017-05-11 19:21 | DS ---
Date/Time of Note Date/Time of Note DATE: 05/11/17 TIME: 19:17 Discharge Summary Admission/Discharge Info Admit Date/Time May 08, 2017 at 21:15 Discharge Date/Time May 11, 2017 at 16:41 Discharge Diagnosis 1. Chest pain status post PCI of the circumflex - Echocardiogram with preserved ejection fraction. -Continue dual antiplatelet therapy, statin therapy, DC with beta-blockers -Possible PCI of the LAD electively, unless develops symptoms, follow-up with cardiology 2. History of CAD with stent -See #1 3. History of sleep apnea -Continue CPAP with home settings 4. History of dyslipidemia -Continue statin Patient Condition: Good Hospital Course Patient is a 61-year-old male with a history of CAD with stent MT, dyslipidemia , sleep apnea on CPAP who presented to the emergency department complaining of chest pain and shortness of breath. Patient reported that 2 months ago he was hospitalized for chest pain in [place] where he underwent PCI with placement of 4 stents including to RCA for 100% occlusion. He said he was told that he needs additional cardiac stents for residual disease and LAD and circumflex(it was not done at that time because it was felt that the patient had already received a good amount of contrast). He has been compliant with his aspirin, Plavix and statin. Patient continued to have chest pain and underwent PCI with stent placement in the circumflex with cardiology. Patient's chest pain did improve and he was cleared for DC per cardiology. Patient was tolerating low-dose beta-olive. On the day of discharge patient's vitals, labs and physical exam stable and no acute complaints his questions were answered. Patient does have a follow-up appointment with his diagram clerk in approximately week and will require an elective PCI of the LAD per cardiology. Home Meds Active Scripts Metoprolol Tartrate* (Lopressor*) 25 Mg Tab, 12.5 MG PO BID, #60 TAB Prov:SHIELA MCLEOD 05/11/17 Reported Medications Clopidogrel Bisulfate* (Clopidogrel Bisulfate*) 75 Mg Tablet, 75 MG PO DAILY, # 30 TAB 05/08/17 Atorvastatin* (Atorvastatin*) 40 Mg Tablet, 40 MG PO QHS, #30 TAB 05/08/17 Aspirin* (Aspirin* EC) 325 Mg Tab, 325 MG PO DAILY, TAB 05/08/17 Follow-up Plan Follow with PCP 1-2 weeks and with cardiology as scheduled Primary Care Provider Alen Anderson Time spent on discharge: > 30 minutes SHIELA MCLEOD May 11, 2017 19:21
--- NOTE | 2017-05-12 12:28 | RADRPT ---
Vent Rate: 59 bpm RR Interval: 0 msec [place] Interval: 198 msec QRS Duration: 98 msec QT Interval: 424 msec QTC Interval: 419 msec P-R-T [place]: 51 - -11 - 17 degrees Sinus bradycardia T wave abnormality, consider lateral ischemia Abnormal ECG Electronically Signed By: Sukhdev Bull [id number]
== END 2017-05-11 16:41 | disposition home or self-care (01) | DRG 247 ==
LOC: E/R 19:32 → TEL 21:15 → ICU 05-09 20:38 → TEL 05-10 16:58
PROVIDERS: ADMIT Internal Medicine; ATTEND Internal Medicine
PROC: B211YZZ Fluoroscopy of Multiple Coronary Arteries using Other Contrast (ICD-10-PCS; 2017-05-09)
PROC: 027035Z Dilation of Coronary Artery, One Artery with Two Drug-eluting Intraluminal Devices, Percutaneous Approach (ICD-10-PCS; principal; 2017-05-09 18:00)
PROC: 4A023N7 Measurement of Cardiac Sampling and Pressure, Left Heart, Percutaneous Approach (ICD-10-PCS; 2017-05-09 18:00)
DX: I25.10 Atherosclerotic heart disease of native coronary artery without angina pectoris (principal); I10 Essential (primary) hypertension; E78.5 Hyperlipidemia, unspecified; G47.30 Sleep apnea, unspecified; R07.9 Chest pain, unspecified; I25.2 Old myocardial infarction; Z95.5 Presence of coronary angioplasty implant and graft; Z79.02 Long term (current) use of antithrombotics/antiplatelets; Z79.82 Long term (current) use of aspirin
CPT/HCPCS: 36415; 71010; 80048; 80053; 80061; 82550; 82553; 83036; 84443; 84484; 85025; 85610; 85730; 87081; 93005; 93306; 93458; 94660; C1725; C1874; C1887; C1894; C9600; J1644; J2250; J3010; J7030; Q9967

== ENCOUNTER 2017-07-24 18:31 | Inpatient (IN) | payer OTHER ==
[~2017-07-24] VITALS: Ht 170.2 cm; Wt 73.1 kg
[~2017-07-24 18:31] MED LIST: ASPI325T32 PO; ATOR40TA68 PO; CLOP75TA4 PO; METO-448 PO
[2017-07-24 18:37] VITALS: Ht 170.2 cm; Wt 73.1 kg
--- NOTE | 2017-07-24 19:11 | ERD ---
ER Documentation Chief Complaint Chief Complaint sharp chest pain w/ sob since this morning, hc cardiac stent 02/2017 HPI 61-year-old man complains of chest pain or shortness of breath beginning early this morning, resolving and then returning this afternoon. He had sharp nonexertional nonradiating chest pain and has constant shortness of breath. He states he has these symptoms on a regular basis but today's symptoms lasted a bit longer and were associated with shortness of breath which was unusual to him. He denies chest pain here in the ED at this time. He has had no fevers or chills, no calf or leg swelling, no cough, no headache or blurry vision. Patient has been using his medications as prescribed ROS All systems reviewed and are negative except as per history of present illness. Medications Home Meds Active Scripts Metoprolol Tartrate* (Lopressor*) 25 Mg Tab, 12.5 MG PO BID, #60 TAB Prov:SHIELA MCLEOD 05/11/17 Reported Medications Clopidogrel Bisulfate* (Clopidogrel Bisulfate*) 75 Mg Tablet, 75 MG PO DAILY, # 30 TAB 05/08/17 Atorvastatin* (Atorvastatin*) 40 Mg Tablet, 40 MG PO QHS, #30 TAB 05/08/17 Aspirin* (Aspirin* EC) 325 Mg Tab, 325 MG PO DAILY, TAB 05/08/17 Allergies Allergies: Coded Allergies: No Known Allergy (Unverified , 07/24/17) PMhx/Soc History of CAD, MA, PCI with stent placement, hypertension, obstructive sleep apnea, dyslipidemia History of Surgery: Yes (ROOT CANAL,STENTS X 4) Anesthesia Reaction: No Hx Neurological Disorder: No Hx Respiratory Disorders: Yes (SLEEP APNEA;USES CPAP AT HOME) Hx Cardiac Disorders: Yes (NSTEMI,ACS,CAD,STENTS X 4) Hx Psychiatric Problems: No Hx Miscellaneous Medical Probl: Yes (HIGH CHOL) Hx Alcohol Use: No Hx Substance Use: No Hx Tobacco Use: No FmHx Family History: No diabetes Physical Exam Vitals Vital Signs Date Time Temp Pulse Resp B/P Pulse Ox O2 Delivery O2 Flow Rate FiO2 07/24/17 18:37 98.3 64 20 175/81 99 Physical Exam GENERAL: Well-developed, well-nourished, well-hydrated, in no apparent distress , looks nontoxic in appearance HEENT: Moist mucous membranes, pink conjunctiva, no cervical spine tenderness or step-off deformities, no goiter, no jaundice or icterus, extraocular movements intact without pain. No submandibular induration, and no pharyngeal erythema NEURO: Alert and oriented 3, cranial nerves II through XII intact bilaterally, pupils equal round reactive to light, no focal deficits or facial asymmetry, sensation intact distally Strength 5/5 in upper and lower extremities bilaterally CARDIAC: Regular rate and rhythm, no murmurs rubs or gallops LUNGS: Clear bilaterally no wheezing crackles or stridor ABDOMEN: Soft nontender, no guarding, no rigidity, no rebound, no psoas sign no obturator sign. Normoactive bowel sounds SKIN: Warm and dry to touch, no abrasions, contusions, or hematomas, no lacerations, no ecchymosis, no target lesions, and without ulcers EXTREMITIES: No clubbing cyanosis or edema, calves are bilaterally symmetrical, no Homans sign, no popliteal cord sign. Distal pulses equal and bilateral PSYCH: Normal affect without agitation or irritability Result Diagram: 07/25/1772507/25/17 0726 Results 24 hrs Laboratory Tests Test 07/24/17 19:16 White Blood Count 7.010^3/ul Red Blood Count 4.1110^6/ul Hemoglobin 13.5g/dl Hematocrit 39.8% Mean Corpuscular Volume 96.8fl Mean Corpuscular Hemoglobin 32.8pg Mean Corpuscular Hemoglobin Concent 33.9g/dl Red Cell Distribution Width 11.5% Platelet Count 56138^3/UL Mean Platelet Volume 11.7fl Neutrophils % 65.7% Lymphocytes % 23.7% Monocytes % 7.6% Eosinophils % 2.6% Basophils % 0.3% Nucleated Red Blood Cells % 0.0/100WBC Neutrophils # 4.610^3/ul Lymphocytes # 1.710^3/ul Monocytes # 0.510^3/ul Eosinophils # 0.210^3/ul Basophils # 0.010^3/ul Nucleated Red Blood Cells # 0.010^3/ul Sodium Level 141mmol/L Potassium Level 3.8mmol/L Chloride Level 104mmol/L Carbon Dioxide Level 30mmol/L Anion Gap 11 Blood Urea Nitrogen 16mg/dl Creatinine 0.95mg/dl Glucose Level 112mg/dl Calcium Level 9.3mg/dl Total Bilirubin 0.4mg/dl Direct Bilirubin 0.00mg/dl Indirect Bilirubin 0.4mg/dl Aspartate Amino Transf (AST/SGOT) 38IU/L Alanine Aminotransferase (ALT/SGPT) 60IU/L Alkaline Phosphatase 94IU/L Troponin I < 0.012ng/ml B-Type Natriuretic Peptide 125PG/ML Total Protein 7.5g/dl Albumin 4.0g/dl Globulin 3.50g/dl Albumin/Globulin Ratio 1.14 Lipase 67U/L Current Medications Medications (Trade) Dose Ordered Sig/Anderson Route PRN Reason Start Time Stop Time Status Last Admin Dose Admin Furosemide (Lasix) 40 mg ONCE ONCE IV 07/24/17 20:00 07/24/17 20:01 DC 07/24/17 19:56 Procedures/[facility] IV line was established 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 Patient was afebrile EKG #1 performed, read by me revealed a normal sinus rhythm 64 bpm, normal axis , narrow QRS complex, no concerning ST elevations or depressions noted. EKG #2 performed about 30 minutes later, read by me revealed a normal sinus rhythm at 66 bpm, normal axis, right ventricular conduction delay with a QRS duration of 114 ms, no concerning ST elevations or depressions noted. EKG #3 performed about 2 hours after the second, read by me is unchanged reveals a normal sinus rhythm at 61 bpm, normal axis, right ventricular conduction delay, no concerning ST elevations or depressions noted. One AP view of the chest performed, read by me reveals no acute infiltrates, normal mediastinum, sharp costophrenic and cardiac borders, no air under the diaphragm. Otherwise unremarkable chest x-ray. Patient already used high-dose aspirin prior to arrival, I administered furosemide 40 mg IV 1 for possible mild decompensated heart failure CBC and electrolytes were unremarkable, liver function tests are normal, troponin was negative. Patient will be admitted to telemetry setting for continued medical management cardiology consultation Departure Diagnosis: Primary Impression: Chest pain Chest pain type: unspecified Qualified Code: R07.9 - Chest pain, unspecified type Additional Impression: Hypertension Hypertension type: essential hypertension Qualified Code: I10 - Essential hypertension Condition: ZACHARIAH Ferrell MD Jul 24, 2017 19:11
[2017-07-24] MEDS ORDERED: FUROSEMIDE 40 MG INJ IV ONE (20:00)
--- NOTE | 2017-07-24 20:26 | RADRPT ---
PROCEDURE: XR Chest. CLINICAL INDICATION: Shortness of breath. TECHNIQUE: A single portable view of the chest was obtained. COMPARISON: 05/08/2017 FINDINGS: The cardiomediastinal silhouette is within normal limits. The lungs and pleural spaces are clear. The soft tissues and osseous structures are unremarkable. IMPRESSION: No acute cardiopulmonary disease. RPTAT: HPNM Physician Colin Date Time Electronically viewed and signed by Pratik Perez Physician on 07/24/2017 20:25 /
[2017-07-24 22:06] VITALS: PULSE 59
[2017-07-24 22:21] VITALS: BP 138/87; RESP 19
--- NOTE | 2017-07-24 22:50 | HP ---
Date/Time of Note Date/Time of Note DATE: 07/24/17 TIME: 22:43 Assessment/Plan VTE Prophylaxis VTE Prophylaxis Intervention: SCD's Lines/Catheters IV Catheter Type (from Nrs): [place] Assessment/Plan Chief Complaint/Hosp Course This is a 51-year-old male being admitted to the telemetry floor for: #1 Chest pain: rule out ACS: extensive cardiac history. EKG done x 3 which did not show any acute ST elevations. Currently pain free. Trend troponins, first set negative. Consult cardio. We will keep patient n.p.o. for possible procedure in the a.m. #2 Coronary artery disease: Patient has stents 6. The current time will continue aspirin, statin, beta olive #3 hyperlipidemia: We will check a lipid panel, continue statin #4 DVT GI prophylaxis: SCDs, no GI prophylaxis indicated at this time., Problems: HPI/ROS Admit Date/Time Admit Date/Time Jul 24, 2017 at 21:23 Hx of Present Illness Chief complaint: Chest pain This is a 61-year-old male who presented to the ED with chest pain that started this morning. Patient has an extensive history of coronary artery disease requiring 6 stents with the most recent to being placed in April 2017. Patient states that he was sitting when he started noticing a sharp chest pain with shortness of breath on the left side, 10 out of 10 in intensity earlier this morning. Patient states that the pain subsided on its own. He previously had a stent in April 2017 patient does note that there was still an artery that needed to be stented. Allergies: NKDA Medications: See LEEANN CABA Const: As per HPI Eyes : No pain discharge or redness or change in visual acuity ENT: No pain, sore throat, congestion, congestion, dysphagia or discharge Respiratory: As per HPI Cardiovascular: As per HPI GI : no change in appetite, abdominal pain, nausea, vomiting, diarrhea, constipation, or change in the color his stool Genitourinary: No dysuria, hematuria, flank pain , discharge or CVA tenderness Musculoskeletal: No joint pain, back pain, neck pain, restricted range of motion in neck or joints Skin: No rash, bruising or hives Neuro: No headache, dizziness, syncope, seizure, focal weakness Endocrine: No polyuria, polydipsia, temperature intolerance Psych: No hallucination, depression, anxiety or suicidal ideation PMH/Family/Social Past Medical History coronary artery disease, high cholesterol Past Surgical History stents x 6 Past Surgical Hx: other Family History Significant Family History: heart disease (brother) Social History Alcohol Use: none Smoking Status: Never smoker Drug Use: none Exam/Review of Systems Vital Signs Vitals Vital Signs Date Time Temp Pulse Resp B/P Pulse Ox O2 Delivery O2 Flow Rate FiO2 07/24/17 22:21 98.8 62 19 138/87 96 07/24/17 21:39 Room Air Exam Exam General: This is a 61-year-old male sitting in bed in no acute distress HEENT: Atraumatic, normocephalic. The pupils are equal, round and reactive. Extraocular motor are intact Neck: Supple with full range of motion. No rigidity or meningismus Chest: Nontender to palpation Lungs: Clear to auscultation bilaterally no crackles rales or wheezing Heart: S1-S2, regular rhythm, no overt murmurs appreciated Abdomen: Soft , nontender, nondistended , bowel sounds are present. No guarding no rebound tenderness , No masses or organomegaly. No costovertebral temporal angle mass Extremities: Normal to inspection, no edema no cyanosis Neurologic: Normal mental status, speech normal, cranial nerves II through XII are intact, motor and sensory are intact, no focal weakness Additional Comments PROCEDURE: XR Chest. CLINICAL INDICATION: Shortness of breath. TECHNIQUE: A single portable view of the chest was obtained. COMPARISON: 05/08/2017 FINDINGS: The cardiomediastinal silhouette is within normal limits. The lungs and pleural spaces are clear. The soft tissues and osseous structures are unremarkable. IMPRESSION: No acute cardiopulmonary disease. RPTAT: HPNM Physician Colin Date Time Electronically viewed and signed by Pratik Perez Physician on 07/24/2017 20 :25 / CC: ZACHARIAH LEWIS MD EKG #1 performed, read by me revealed a normal sinus rhythm 64 bpm, normal axis , narrow QRS complex, no concerning ST elevations or depressions noted. EKG #2 performed about 30 minutes later, read by me revealed a normal sinus rhythm at 66 bpm, normal axis, right ventricular conduction delay with a QRS duration of 114 ms, no concerning ST elevations or depressions noted. EKG #3 performed about 2 hours after the second, read by me is unchanged reveals a normal sinus rhythm at 61 bpm, normal axis, right ventricular conduction delay, no concerning ST elevations or depressions noted. As per ED physician documentation Labs Result Diagram: 07/24/17191507/24/[id number] MILAN SAINZ Jul 24, 2017 22:50
[2017-07-24] MEDS ORDERED: ONDANSETRON 4 MG INJ IV PRN (23:00)
[2017-07-24] MEDS ORDERED: morphine 2 MG INJ IV PRN (23:00)
[2017-07-24] MEDS ORDERED: NACL 0.9% 3 ML SYG IV SCH (23:00)
[2017-07-24] MEDS ORDERED: NITROGLYCERIN (SL) 0.4 MG TAB SL PRN (23:00)
[2017-07-25] VITALS (14 sets, daily range): BP systolic 94–132; BP diastolic 66–76; PULSE 58–83; RESP 14–21
--- NOTE | 2017-07-25 11:49 | PN ---
Date/Time of Note Date/Time of Note DATE: 07/25/17 TIME: 11:48 Assessment/Plan VTE Prophylaxis VTE Prophylaxis Intervention: SCD's Lines/Catheters IV [facility] Saline Lock Urinary Cath still in place: No Assessment/Plan Chief Complaint/Hosp Course 1. Chest pain. The patient has known history of CAD status post multiple stents in the past. The patient's last left heart catheterization was on May 09, 2017 when he had a successful PTCA and stenting of the distal left circumflex artery. At that time, the patient was noticed to have a LAD disease with 50% stenosis of the proximal LAD and 90% stenosis at the mid LAD. The deli manager has recommended intervention of the LAD at a later date. The patient is scheduled to undergo a heart catheterization today with possible intervention to the LAD. 2. Coronary artery disease. Status post multiple coronary stents. Continue aspirin, Plavix, statins, and beta blockers. 3. Dyslipidemia. Continue statins. 4. Prediabetes. Hemoglobin A1c 6.2. Will monitor random blood glucose levels. If the patient's blood glucose levels continue to run high, will start appropriate treatment. 5. Fluids, electrolytes, and nutrition. N.p.o. for possible left heart catheterization. 6. DVT prophylaxis. Bilateral sequential compression devices. 7. Plan. Await left heart catheterization and further recommendations from cardiology. Case discussed with Dr. Cortes. Problems: Subjective 24 Hr Interval Summary Free Text/Dictation Denies any chest pain. Denies any dyspnea. Exam/Review of Systems Vital Signs Vitals Vital Signs Date Time Temp Pulse Resp B/P Pulse Ox O2 Delivery O2 Flow Rate FiO2 07/25/17 08:17 62 07/25/17 07:41 98.3 21 123/76 97 07/24/17 21:39 Room Air Intake and Output 07/24/17 07/24/17 07/25/17 15:00 23:00 07:00 Intake Total 300 ml Output Total 3000 ml Balance -3000 ml 300 ml Exam General: Adequately build 61 year-old male lying in bed in no apparent distress. HEENT: Normocephalic, atraumatic. Eyes: Anicteric sclerae, conjunctivae clear. ENT: Nasal septum midline, oral mucosa moist. Neck supple, no JVD noticed. Respiratory: Bilaterally clear breath sounds. No use of accessory muscles of respiration. No adventitious breath sounds. Cardiovascular: S1, S2 heard. No murmurs or gallops. Abdomen: Soft, nontender, and nondistended. Bowel sounds positive in all 4 quadrants. Genitourinary: Deferred. Extremities: No cyanosis, no clubbing, no edema. Peripheral pulses palpable. Neurologic: Cranial nerves II through XII grossly intact. The patient is awake, alert, and oriented. Skin: Normal skin turgor. No skin rashes. Results Result Diagram: 07/25/17 0726 07/25/17 0726 Results 24 hrs Laboratory Tests Test 07/24/17 19:16 07/25/17 07:26 07/25/17 09:33 White Blood Count 7.0 # 6.1 Red Blood Count 4.11 L 4.43 L Hemoglobin 13.5 L 13.8 L Hematocrit 39.8 L 42.3 Mean Corpuscular Volume 96.8 95.5 Mean Corpuscular Hemoglobin 32.8 31.2 Mean Corpuscular Hemoglobin Concent 33.9 32.6 Red Cell Distribution Width 11.5 11.8 Platelet Count 169 170 Mean Platelet Volume 11.7 H 11.5 H Neutrophils % 65.7 59.0 Lymphocytes % 23.7 28.9 Monocytes % 7.6 9.1 Eosinophils % 2.6 2.5 Basophils % 0.3 0.3 Nucleated Red Blood Cells % 0.0 0.0 Neutrophils # 4.6 3.6 Lymphocytes # 1.7 1.8 Monocytes # 0.5 0.6 Eosinophils # 0.2 0.2 Basophils # 0.0 0.0 Nucleated Red Blood Cells # 0.0 0.0 Sodium Level 141 142 Potassium Level 3.8 3.6 Chloride Level 104 101 Carbon Dioxide Level 30 31 Anion Gap 11 14 Blood Urea Nitrogen 16 16 Creatinine 0.95 0.90 Glucose Level 112 115 Calcium Level 9.3 9.4 Total Bilirubin 0.4 1.1 Direct Bilirubin 0.00 0.00 Indirect Bilirubin 0.4 1.1 Aspartate Amino Transf (AST/SGOT) 38 37 Alanine Aminotransferase (ALT/SGPT) 60 57 Alkaline Phosphatase 94 87 Troponin I < 0.012 < 0.012 < 0.012 B-Type Natriuretic Peptide 125 Total Protein 7.5 7.2 Albumin 4.0 4.1 Globulin 3.50 H 3.10 Albumin/Globulin Ratio 1.14 1.32 Lipase 67 Hemoglobin A1c 6.2 H Creatine Kinase 61 Creatine Kinase Index 1.1 Creatinine Kinase MB (Mass) 0.68 Triglycerides Level 69 Cholesterol Level 119 LDL Cholesterol, Calculated 56 HDL Cholesterol 49 Cholesterol/HDL Ratio 2.4 Thyroid Stimulating Hormone (TSH) 1.630 Medications Medications Current Medications Ondansetron HCl (Zofran Inj) 4 mg Q6H PRN IV NAUSEA AND/OR VOMITING; Start 07/24/17 at 23:00 Nitroglycerin (Nitroglycerin (Sl Tab) 0.4 Mg) 1 tab Q5M PRN SL CHEST PAIN; Start 07/24/17 at 23:00 Morphine Sulfate (morphine) 2 mg Q4H PRN IV PAIN LEVEL 7-10; Start 07/24/17 at 23:00 Aspirin (Ecotrin) 325 mg DAILY PO ; Start 07/26/17 at 09:00 Atorvastatin Calcium (Lipitor) 40 mg QHS PO ; Start 07/25/17 at 21:00 Clopidogrel Bisulfate (plaVIX) 75 mg DAILY PO ; Start 07/26/17 at 09:00 Metoprolol Tartrate (Lopressor) 12.5 mg BID PO ; Start 07/25/17 at 21:00 ELVIRA SHERMAN NP Jul 25, 2017 11:49
--- NOTE | 2017-07-25 15:31 | CONS ---
Date/Time of Note Date/Time of Note DATE: 07/25/17 TIME: 15:24 Assessment/Plan Assessment/Plan Chief Complaint/Hosp Course 1. ACS 2. multivessel CAD 3. HX DC 4. HX PCI 5. Dyslipidemia 6. HTN Continue current optimal medical therapy including aspirin Plavix. Beta- olive will be continued study will be continued. Given his known coronary artery disease and recurrent angina despite medical therapy he was recommended to undergo left heart catheterization coronary angiography and possible percutaneous coronary intervention. Risks benefits and alternatives of procedure including but not limited to risk of infection vascular complication bleeding complications DC stroke arrhythmia at that renal failure etc. discussed with the patient in presence of his in detail. Patient and the family have consented to the procedure. High risk of procedure because is a bifurcation lesion this was discussed with the patient in detail as well. Thank you for his referral. We will continue to follow along with you. LORRIE HERZOG MD [facility] Problems: Consultation Date/Type/Reason Admit Date/Time Jul 24, 2017 at 21:23 Date of Consultation: Jul 25, 2017 Reason for Consultation ACS. CAD. Referring Provider: MILAN SAINZ of Present Illness CC: SOB. Chest pain HPI: Thank you for his referral. History was obtained from the patient discussion with his Biaxin and review of the old chart. This is a pleasant 61-year-old gentleman with history of coronary artery disease status post multiple PCI and DC in the past who came to emergency room above complaint of shortness of breath and chest pain over the past 2 days. His old chart was reviewed. Patient had PCI of his left circumflex artery done in March by myself. At that time he was noted to have complex LAD diagonal lesion as well. He was advised to medically treated and try complex PCI of the LAD and possibly diabetic if the patient continues to be symptomatic despite optimal medical therapy. Patient has been doing well up until recently when he started having recurrence of chest pain and shortness of breath dyspnea on exertion. Patient says that his discomfort is similar to his discomfort he had prior to his PCI. Troponin have been negative so far. Allergies no known drug allergies Past medical history is of coronary artery disease status post DC with history of multiple PCI's including complex PCI of his left circumflex artery and obtuse marginal and March. At that time was noted to have significant LAD lesion at the site of a large diagonal branch. Hypertension. Dyslipidemia Medication was reviewed as per medical reconciliation which were personally reviewed. Family history: No reported early coronary artery disease. SOCIAL HISTORY: NONSMOKER Review of system: As above only. Past Surgical History Past Surgical Hx: other Social History Alcohol Use: none Smoking Status: Never smoker Drug Use: none Exam/Review of Systems Vital Signs Vitals Vital Signs Date Time Temp Pulse Resp B/P Pulse Ox O2 Delivery O2 Flow Rate FiO2 07/25/17 12:48 64 07/25/17 11:56 98.4 18 119/67 96 07/24/17 21:39 Room Air Intake and Output 07/24/17 07/24/17 07/25/17 15:00 23:00 07:00 Intake Total 300 ml Output Total 3000 ml Balance -3000 ml 300 ml Exam General: no acute distress HEENT: NC/AT. pupils are equal. round. NECK: NO JVD. no stridor. CV: RRR. systolic murmur; no gallop or rubs. PULM: no wheezing or rhonchi. GI: SOFT, NT, ND, no rebound or guarding Extremity: trace B/L LE edema. no clubbing. neuro: awake and alert, OX3. Psych: calm and pleasant rectal: deferred ECG: NSR normal Results Result Diagram: 07/25/1772507/25/17725 Results 24 hrs Laboratory Tests Test 07/24/17 19:16 07/25/17 07:26 07/25/17 09:33 07/25/17 12:19 White Blood Count 7.0 # 6.1 Red Blood Count 4.11 L 4.43 L Hemoglobin 13.5 L 13.8 L Hematocrit 39.8 L 42.3 Mean Corpuscular Volume 96.8 95.5 Mean Corpuscular Hemoglobin 32.8 31.2 Mean Corpuscular Hemoglobin Concent 33.9 32.6 Red Cell Distribution Width 11.5 11.8 Platelet Count 169 170 Mean Platelet Volume 11.7 H 11.5 H Neutrophils % 65.7 59.0 Lymphocytes % 23.7 28.9 Monocytes % 7.6 9.1 Eosinophils % 2.6 2.5 Basophils % 0.3 0.3 Nucleated Red Blood Cells % 0.0 0.0 Neutrophils # 4.6 3.6 Lymphocytes # 1.7 1.8 Monocytes # 0.5 0.6 Eosinophils # 0.2 0.2 Basophils # 0.0 0.0 Nucleated Red Blood Cells # 0.0 0.0 Sodium Level 141 142 Potassium Level 3.8 3.6 Chloride Level 104 101 Carbon Dioxide Level 30 31 Anion Gap 11 14 Blood Urea Nitrogen 16 16 Creatinine 0.95 0.90 Glucose Level 112 115 Calcium Level 9.3 9.4 Total Bilirubin 0.4 1.1 Direct Bilirubin 0.00 0.00 Indirect Bilirubin 0.4 1.1 Aspartate Amino Transf (AST/SGOT) 38 37 Alanine Aminotransferase (ALT/SGPT) 60 57 Alkaline Phosphatase 94 87 Troponin I < 0.012 < 0.012 < 0.012 < 0.012 B-Type Natriuretic Peptide 125 Total Protein 7.5 7.2 Albumin 4.0 4.1 Globulin 3.50 H 3.10 Albumin/Globulin Ratio 1.14 1.32 Lipase 67 Hemoglobin A1c 6.2 H Creatine Kinase 61 62 Creatine Kinase Index 1.1 1.1 Creatinine Kinase MB (Mass) 0.68 0.66 Triglycerides Level 69 Cholesterol Level 119 LDL Cholesterol, Calculated 56 HDL Cholesterol 49 Cholesterol/HDL Ratio 2.4 Thyroid Stimulating Hormone (TSH) 1.630 Medications Medications Current Medications Ondansetron HCl (Zofran Inj) 4 mg Q6H PRN IV NAUSEA AND/OR VOMITING; Start 07/24/17 at 23:00 Nitroglycerin (Nitroglycerin (Sl Tab) 0.4 Mg) 1 tab Q5M PRN SL CHEST PAIN; Start 07/24/17 at 23:00 Morphine Sulfate (morphine) 2 mg Q4H PRN IV PAIN LEVEL 7-10; Start 07/24/17 at 23:00 Aspirin (Ecotrin) 325 mg DAILY PO ; Start 07/26/17 at 09:00 Atorvastatin Calcium (Lipitor) 40 mg QHS PO ; Start 07/25/17 at 21:00 Clopidogrel Bisulfate (plaVIX) 75 mg DAILY PO ; Start 07/26/17 at 09:00 Metoprolol Tartrate (Lopressor) 12.5 mg BID PO ; Start 07/25/17 at 21:00 LORRIE HERZOG MD Jul 25, 2017 15:31
[2017-07-25] MEDS ORDERED: IODIXANOL LOCM 100 ML BTL ONE (17:26)
[2017-07-25] MEDS ORDERED: LIDOCAINE 1% (MDV) 20 ML INJ ONE (17:26)
[2017-07-25] MEDS ORDERED: MIDAZOLAM 1 MG/ML 2 ML INJ ONE (17:27)
[2017-07-25] MEDS ORDERED: FENTAnyl 50 MCG/ML VIAL ONE (17:28)
[2017-07-25] MEDS ORDERED: NITROGLYCERIN (IC) 100 MCG/ML INJ ONE (18:25)
[2017-07-25] MEDS ORDERED: CLOPIDOGREL 300 MG TAB ONE (18:47)
[2017-07-25] MEDS ORDERED: ASPIRIN 81 MG TAB ONE (18:48)
[2017-07-25] MEDS ORDERED: SOD CHLORIDE 0.9% 1,000 ML IV SCH (18:55)
--- NOTE | 2017-07-25 19:08 | OPR ---
Date/Time of Note Date/Time of Note DATE: 07/25/17 TIME: 18:58 Operative Report Procedure Date: Jul 25, 2017 Preoperative Diagnosis ACS Postoperative Diagnosis same Surgeon see signature line Marine Underwriter na/ Anesthesia Type: moderate sedation Estimated Blood Loss: minimal Transfusion none Specimen none Grafts/Implants none Complications none Procedure Description Computational Scientist: Lorrie Araiza MD Indication: 61-year-old gentleman with history of coronary artery disease status post PCI of his right coronary artery and left circumflex artery with known LAD disease at the junction of LAD and diagonal who presented with recurrent anginal chest pain/unstable angina/acute coronary syndrome. Procure performed: #1 left heart catheterization and selective right and left coronary angiogram. #2 Right femoral angiogram and closure using a perclose device 3. Successful PTCA and stenting of proximal to mid LAD using a 3 x 28 mm juanita drug-eluting stent 4. Successful angioplasty of the ostium of the diagonal 1 4. Moderate sedation for more than 90 minutes Findings: 1. Left main: is longl and birfurcates to LAD & LCX. It has 10% ostial stenosis 2. LAD: has 40% % stenosis at proximal LAD, and 90% % stenosis at proximal/mid LAD right at the site of the moderate-sized diagonal. After successful PTCA stenting of this lesion there was no significant residual stenosis left. Diagonal 1 is a moderate size vessel. After stenting of the LAD there was 95% ostial stenosis noted in the diagonal. Once this lesion was angioplastied as there was less than 20% residual stenosis left.. 3. Left circumflex artery: is nondominant. it has mild stenosis. Previous stents are widely patent. 4. RCA: is dominant. it has 40% proximal stenosis. Previous stents in mid RCA and posterolateral artery are widely patent. 5. Ramus intermediate is a very small vessel. It has no obstructive disease. 6. LV: EF 60%, LVEDP 3. no significant gradient across the aortic valve Procedure in detail: Written informed consent with obtained after risks benefits and alternatives discussed with the patient in detail. risks including but not limited to risk of infection vascular complications, bleeding complications, CA stroke arrhythmia renal failure at even were discussed with the patient in detail. Patient was brought into the cardiac dental laboratory assistant and placed in supine position. Right and left groin area was prepped and draped in regular sterile fashion and then he was in anesthetized using 1% lidocaine. Right femoral artery was cannulated and using modified seldinger technique a 6 Gibraltarian sheath was placed in the right femoral artery. Right femoral angiogram was performed. JL4 catheter was advanced and engaged into the left main coronary artery and angiographic view was obtained. The JR4 catheter was advanced and engaged right coronary artery angiographic view was obtained. Pigtail was advanced to engage the left ventricle hemodynamics as recorded by pullback aortic pressure was measured. At this time we decided to perform PCI of the LAD artery. A Perclose was used to pre-close the vessel then I changed the sheath to a 7 Gibraltarian long sheath was placed in the right femoral artery. A XB LAD 3.57 Gibraltarian guiding head was advanced to engage the left main artery. BMW wire was used and advanced across the lesion and placed distal LAD. Another BMW wire by using placed across the diagonal.. I used a 2.5 x 12 mm noncompliant balloon which was placed across the LAD lesion and predilated the vessel. Then I used a 3 x 28 mm juanita drug- eluting stent which was placed across the LAD lesion and deployed at 14 tay. Angiographic view was obtained. Nitroglycerin was given more patient was obtained. It appeared that the ostium of the diagonal was jailed. I used another wire and recrossed this lesion into the diagonal. The previous wire which was jailed in the diagonal was removed. Then I used a 2.0 x 8 mm noncompliant balloon was placed across the ostium of the diagonal and inflated for prolonged inflation at 14 tay. Finally a 2.5 x 12 mm noncompliant balloon was placed across the LAD stent and postdilated the LAD stent at the final inflation at up to 16 tay. Final angiographic view was obtained which showed LIDYA-3 flow no evidence of dissection and no significant residual stenosis at the site of the stent. Diagonal ostium has less than 20% lesion and has LIDYA-3 flow. perclose was successfully deployed. Patient tolerated the procedure well with no complication. Patient to be transferred to ICU in stable condition. Conclusions: Successful PTCA stenting of the left anterior descending artery from 90% stenosis to no significant residual stenosis using a 3 x 28 mm juanita drug-eluting stent. Successful angioplasty of ostium of the diagonal. Recommendations: Aggressive medical therapy. aspirin indefinitely dual antiplatlet therapy with aspirin and Plavix. ICU care overnight. LORRIE ARAIZA MD [facility] LORRIE ARAIZA MD Jul 25, 2017 19:08
[2017-07-25] MEDS ORDERED: ATORVASTATIN 40 MG TAB PO SCH (21:00)
[2017-07-25] MEDS: ISOSORBIDE DINITRATE 10 MG TAB PO SCH (21:20)
[2017-07-25] MEDS: METOPROLOL 25 MG TAB PO SCH (21:21)
[2017-07-26] VITALS (15 sets, daily range): BP systolic 87–113; BP diastolic 55–70; PULSE 61–81; RESP 13–19
[2017-07-26] MEDS: ISOSORBIDE DINITRATE 10 MG TAB PO SCH ×2 (08:45→13:42)
[2017-07-26] MEDS: METOPROLOL 25 MG TAB PO SCH (08:46)
--- NOTE | 2017-07-26 08:56 | PN ---
Date/Time of Note Date/Time of Note DATE: 07/26/17 TIME: 08:53 Assessment/Plan VTE Prophylaxis VTE Prophylaxis Intervention: SCD's Lines/Catheters IV [facility]from [facility] Peripheral IV Urinary Cath still in place: No Assessment/Plan Chief Complaint/Hosp Course 1. Chest pain. ACS. The patient has known history of CAD status post multiple stents in the past. S/P left heart catheterization on 07/25/2017 with successful PTCA and stenting of proximal to mid LAD using a 3 x 28 mm juanita drug- eluting stent along with successful angioplasty of the ostium of the diagonal 1. Continue dual antiplatelet therapy. 2. Coronary artery disease. Status post multiple coronary stents. Continue aspirin, Plavix, statins, and beta blockers. 3. Dyslipidemia. Continue statins. 4. Prediabetes. Hemoglobin A1c 6.2. Will monitor random blood glucose levels. If the patient's blood glucose levels continue to run high, will start appropriate treatment. 5. Essential hypertension. Continue antihypertensives. 6. Fluids, electrolytes, and nutrition. Low cholesterol diet. 7. DVT prophylaxis. Bilateral sequential compression devices. 8. Plan. Continue current management. Transfer out of ICU once cleared by Cardiology. Case discussed with Dr. Cortes. Critical care time: 35 minutes. Problems: Subjective 24 Hr Interval Summary Free Text/Dictation Denies any chest pain. Denies any dyspnea. Exam/Review of Systems Vital Signs Vitals Vital Signs Date Time Temp Pulse Resp B/P Pulse Ox O2 Delivery O2 Flow Rate FiO2 07/26/17 08:00 98.3 65 14 98/70 97 Room Air Intake and Output 07/25/17 07/25/17 07/26/17 15:00 23:00 07:00 Intake Total 1100 ml 1500 ml Output Total 600 ml Balance 1100 ml 900 ml Exam General: Adequately build 61 year-old male lying in bed in no apparent distress. HEENT: Normocephalic, atraumatic. Eyes: Anicteric sclerae, conjunctivae clear. ENT: Nasal septum midline, oral mucosa moist. Neck supple, no JVD noticed. Respiratory: Bilaterally clear breath sounds. No use of accessory muscles of respiration. No adventitious breath sounds. Cardiovascular: S1, S2 heard. No murmurs or gallops. Abdomen: Soft, nontender, and nondistended. Bowel sounds positive in all 4 quadrants. Genitourinary: Right groin cardiac catheterization site clean, dry, and intact. Extremities: No cyanosis, no clubbing, no edema. Peripheral pulses palpable. Neurologic: Cranial nerves II through XII grossly intact. The patient is awake, alert, and oriented. Skin: Normal skin turgor. No skin rashes. Results Result Diagram: 07/26/171 07/26/17 0441 Results 24 hrs Laboratory Tests Test 07/25/17 09:33 07/25/17 12:19 07/25/17 20:15 07/26/17 00:39 Troponin I < 0.012 < 0.012 0.016 0.020 Creatine Kinase 62 52 52 Creatine Kinase Index 1.1 1.3 1.4 Creatinine Kinase MB (Mass) 0.66 0.68 0.74 Test 07/26/17 04:41 07/26/17 06:52 White Blood Count 6.0 Red Blood Count 4.01 L Hemoglobin 12.6 L Hematocrit 38.1 L Mean Corpuscular Volume 95.0 Mean Corpuscular Hemoglobin 31.4 Mean Corpuscular Hemoglobin Concent 33.1 Red Cell Distribution Width 11.7 Platelet Count 155 Mean Platelet Volume 11.4 H Neutrophils % 69.0 Lymphocytes % 21.7 Monocytes % 7.2 Eosinophils % 1.5 Basophils % 0.3 Nucleated Red Blood Cells % 0.0 Neutrophils # 4.1 Lymphocytes # 1.3 Monocytes # 0.4 Eosinophils # 0.1 Basophils # 0.0 Nucleated Red Blood Cells # 0.0 Sodium Level 140 Potassium Level 3.7 Chloride Level 104 Carbon Dioxide Level 23 Anion Gap 17 H Blood Urea Nitrogen 19 Creatinine 0.83 Glucose Level 72 # Calcium Level 8.4 Phosphorus Level 3.8 Magnesium Level 1.8 Bedside Glucose 151 Medications Medications Current Medications Ondansetron HCl (Zofran Inj) 4 mg Q6H PRN IV NAUSEA AND/OR VOMITING; Start 07/24/17 at 23:00 Nitroglycerin (Nitroglycerin (Sl Tab) 0.4 Mg) 1 tab Q5M PRN SL CHEST PAIN; Start 07/24/17 at 23:00 Morphine Sulfate (morphine) 2 mg Q4H PRN IV PAIN LEVEL 7-10; Start 07/24/17 at 23:00 Atorvastatin Calcium (Lipitor) 40 mg QHS PO Last administered on 07/25/17t 21: 21; Admin Dose 40 MG; Start 07/25/17 at 21:00 Clopidogrel Bisulfate (plaVIX) 75 mg DAILY PO Last administered on 07/26/17 08 :45; Admin Dose 75 MG; Start 07/26/17 at 09:00 Metoprolol Tartrate (Lopressor) 12.5 mg BID PO Last administered on 07/26/17 08:46; Admin Dose 12.5 MG; Start 07/25/17 at 21:00 Isosorbide Dinitrate (Isordil) 10 mg TID PO Last administered on 07/26/17 08: 45; Admin Dose 10 MG; Start 07/25/17 at 21:00 Aspirin (Halfprin) 81 mg DAILY PO Last administered on 07/26/17 08:45; Admin Dose 81 MG; Start 07/26/17 at 09:00 ELVIRA SHERMAN NP Jul 26, 2017 08:56
[2017-07-26] MEDS ORDERED: CLOPIDOGREL 75 MG TAB PO SCH (09:00)
[2017-07-26] MEDS ORDERED: ASPIRIN (EC) 81 MG TAB PO SCH (09:00)
[2017-07-26] MEDS ORDERED: ASPIRIN (EC) 325 MG TAB PO SCH (09:00)
--- NOTE | 2017-07-26 13:15 | PN ---
Date/Time of Note Date/Time of Note DATE: 07/26/17 TIME: 13:14 Assessment/Plan VTE Prophylaxis VTE Prophylaxis Intervention: SCD's Lines/Catheters IV Catheter Type (from Nrs): Saline Lock Urinary Cath still in place: No Assessment/Plan Assessment/Plan 1. ACS 2. multivessel CAD 3. HX CA 4. HX PCI 5. Dyslipidemia 6. HTN -continue cv meds -no cardiac symptoms -d/c home - spoke with RN Subjective 24 Hr Interval Summary Free Text/Dictation The patient with no change Exam/Review of Systems Vital Signs Vitals Vital Signs Date Time Temp Pulse Resp B/P Pulse Ox O2 Delivery O2 Flow Rate FiO2 07/26/17 09:00 65 14 113/65 97 Room Air 07/26/17 08:00 98.3 Intake and Output 07/25/17 07/25/17 07/26/17 15:00 23:00 07:00 Intake Total 1100 ml 1500 ml Output Total 600 ml Balance 1100 ml 900 ml Results Result Diagram: 07/26/17 04407/26/17 0441 Results 24 hrs Laboratory Tests Test 07/25/17 20:15 07/26/17 00:39 07/26/17 04:41 07/26/17 06:52 Creatine Kinase 52 52 Creatine Kinase Index 1.3 1.4 Creatinine Kinase MB (Mass) 0.68 0.74 Troponin I 0.016 0.020 White Blood Count 6.0 Red Blood Count 4.01 L Hemoglobin 12.6 L Hematocrit 38.1 L Mean Corpuscular Volume 95.0 Mean Corpuscular Hemoglobin 31.4 Mean Corpuscular Hemoglobin Concent 33.1 Red Cell Distribution Width 11.7 Platelet Count 155 Mean Platelet Volume 11.4 H Neutrophils % 69.0 Lymphocytes % 21.7 Monocytes % 7.2 Eosinophils % 1.5 Basophils % 0.3 Nucleated Red Blood Cells % 0.0 Neutrophils # 4.1 Lymphocytes # 1.3 Monocytes # 0.4 Eosinophils # 0.1 Basophils # 0.0 Nucleated Red Blood Cells # 0.0 Sodium Level 140 Potassium Level 3.7 Chloride Level 104 Carbon Dioxide Level 23 Anion Gap 17 H Blood Urea Nitrogen 19 Creatinine 0.83 Glucose Level 72 # Calcium Level 8.4 Phosphorus Level 3.8 Magnesium Level 1.8 Bedside Glucose 151 Medications Medications Current Medications Ondansetron HCl (Zofran Inj) 4 mg Q6H PRN IV NAUSEA AND/OR VOMITING; Start 07/24/17 at 23:00 Nitroglycerin (Nitroglycerin (Sl Tab) 0.4 Mg) 1 tab Q5M PRN SL CHEST PAIN; Start 07/24/17 at 23:00 Morphine Sulfate (morphine) 2 mg Q4H PRN IV PAIN LEVEL 7-10; Start 07/24/17 at 23:00 Atorvastatin Calcium (Lipitor) 40 mg QHS PO Last administered on 07/25/17 21: 21; Admin Dose 40 MG; Start 07/25/17 at 21:00 Clopidogrel Bisulfate (plaVIX) 75 mg DAILY PO Last administered on 07/26/17 08 :45; Admin Dose 75 MG; Start 07/26/17 at 09:00 Metoprolol Tartrate (Lopressor) 12.5 mg BID PO Last administered on 07/26/17 08:46; Admin Dose 12.5 MG; Start 07/25/17 at 21:00 Isosorbide Dinitrate (Isordil) 10 mg TID PO Last administered on 07/26/17 08: 45; Admin Dose 10 MG; Start 07/25/17 at 21:00 Aspirin (Halfprin) 81 mg DAILY PO Last administered on 07/26/17 08:45; Admin Dose 81 MG; Start 07/26/17 at 09:00 BEN CALIXTO MD Jul 26, 2017 13:15
--- NOTE | 2017-07-26 13:55 | PDOCDIS ---
Discharge Instructions DIAGNOSIS Discharge Diagnosis CAD. Status post coronary stenting. CONDITION Patient Condition: Stable HOME CARE INSTRUCTIONS: Diet Instructions: Low Fat /Cholesterol (LOW FAT/LOW CHOLESTEROL/LOW SODIUM) Special Diet: Preferably low carbohydrate. ACTIVITY: Activity Restrictions: Slowly Increase Activity FOLLOW UP/APPOINTMENTS Follow-up Plan Trae Araiza MD Specialty Cardiology Office Address [address] [facility] [address] [place] [id number] Office OTHER ORDERS: Other Orders: 1. Take a low-cholesterol, preferably low carbohydrate diet. 2. Take medications as per prescription. Never stop taking aspirin and Plavix unless you talk to your senior program planner. 3. Resume activities as tolerated. Slowly increase activity. 4. Follow-up with in 2 weeks. 5. Please call 911 or go to the nearest emergency room if you have any chest pain or significant shortness of breath. ELVIRA SHERMAN NP Jul 26, 2017 13:55
--- NOTE | 2017-07-26 13:55 | PDOCDIS ---
Discharge Instructions DIAGNOSIS Discharge Diagnosis CAD. Status post coronary stenting. CONDITION Patient Condition: Stable HOME CARE INSTRUCTIONS: Diet Instructions: Low Fat /Cholesterol (LOW FAT/LOW CHOLESTEROL/LOW SODIUM) Special Diet: Preferably low carbohydrate. ACTIVITY: Activity Restrictions: Slowly Increase Activity FOLLOW UP/APPOINTMENTS Follow-up Plan Trae Araiza MD Specialty Cardiology Office Address [address] [facility] [address] [place] [id number] Office OTHER ORDERS: Other Orders: 1. Take a low-cholesterol, preferably low carbohydrate diet. 2. Take medications as per prescription. Never stop taking aspirin and Plavix unless you talk to your fudge candy maker. 3. Resume activities as tolerated. Slowly increase activity. 4. Follow-up with in 2 weeks. 5. Please call 911 or go to the nearest emergency room if you have any chest pain or significant shortness of breath. ELVIRA SHERMAN NP Jul 26, 2017 13:55
[2017-07-26] MEDS ORDERED: ASPI-664 PO (13:57)
[2017-07-26] MEDS ORDERED: ISOS10TA2 PO (13:57)
--- NOTE | 2017-07-26 14:15 | DS ---
Date/Time of Note Date/Time of Note DATE: 07/26/17 TIME: 14:15 Discharge Summary Admission/Discharge Info Discharge Date/Time Home Meds Active Scripts Aspirin* (Aspirin* EC) 81 Mg Tablet., 81 MG PO DAILY, #30 TAB Prov:ELVIRA SHERMAN NP 07/26/17 Isosorbide Dinitrate* (Isordil*) 10 Mg Tablet, 10 MG PO TID, #90 TAB Prov:ELVIRA SHERMAN NP 07/26/17 Metoprolol Tartrate* (Lopressor*) 25 Mg Tab, 12.5 MG PO BID, #60 TAB Prov:SHIELA MCLEOD 05/11/17 Reported Medications Clopidogrel Bisulfate* (Clopidogrel Bisulfate*) 75 Mg Tablet, 75 MG PO DAILY, # 30 TAB 05/08/17 Atorvastatin* (Atorvastatin*) 40 Mg Tablet, 40 MG PO QHS, #30 TAB 05/08/17 Discontinued Reported Medications Aspirin* (Aspirin* EC) 325 Mg Tab, 325 MG PO DAILY, TAB 05/08/17 Primary Care Provider ELVIRA SHERMAN NP Jul 26, 2017 14:15 eluting stent along with successful angioplasty of the ostium of the diagonal 1. Continue dual antiplatelet therapy. 2. Coronary artery disease. Status post multiple coronary stents. Continue aspirin, Plavix, statins, and beta blockers. 3. Dyslipidemia. Continue statins. 4. Prediabetes. Hemoglobin A1c 6.2. Will monitor random blood glucose levels. If the patient's blood glucose levels continue to run high, will start appropriate treatment. 5. Essential hypertension. Continue antihypertensives. 6. Fluids, electrolytes, and nutrition. Low cholesterol diet. 7. DVT prophylaxis. Bilateral sequential compression devices. 8. Plan. Continue current management. Transfer out of ICU once cleared by Cardiology. Case discussed with Dr. Cortes. Critical care time: 35 minutes. Home Meds Active Scripts Aspirin* (Aspirin* EC) 81 Mg Tablet., 81 MG PO DAILY, #30 TAB Prov:ELVIRA SHERMAN NP 07/26/17 Isosorbide Dinitrate* (Isordil*) 10 Mg Tablet, 10 MG PO TID, #90 TAB Prov:ELVIRA SHERMAN NP 07/26/17 Metoprolol Tartrate* (Lopressor*) 25 Mg Tab, 12.5 MG PO BID, #60 TAB Prov:SHIELA MCLEOD 05/11/17 Reported Medications Clopidogrel Bisulfate* (Clopidogrel Bisulfate*) 75 Mg Tablet, 75 MG PO DAILY, # 30 TAB 05/08/17 Atorvastatin* (Atorvastatin*) 40 Mg Tablet, 40 MG PO QHS, #30 TAB 05/08/17 Discontinued Reported Medications Aspirin* (Aspirin* EC) 325 Mg Tab, 325 MG PO DAILY, TAB 05/08/17 Follow-up Plan Trae Araiza MD Specialty Cardiology Office Address [address] [facility] [address] [place] [address] Office Primary Care Provider Alen Anderson Pending Labs Laboratory Tests Test 07/25/17 20:15 07/26/17 00:39 07/26/17 04:41 07/26/17 06:52 Creatine Kinase 52IU/L (23-200) 52IU/L (23-200) Creatine Kinase Index 1.3 1.4 Creatinine Kinase MB (Mass) 0.68ng/ml (0.0-2.4) 0.74ng/ml (0.0-2.4) Troponin I 0.016ng/ml (0.00-0.12) 0.020ng/ml (0.00-0.12) White Blood Count 6.010^3/ul (4.8-10.8) Red Blood Count 4.0110^6/ul (4.70-6.10) Hemoglobin 12.6g/dl (14.0-18.0) Hematocrit 38.1% (42.0-52.0) Mean Corpuscular Volume 95.0fl (82.0-101.0) Mean Corpuscular Hemoglobin 31.4pg (29.0-33.0) Mean Corpuscular Hemoglobin Concent 33.1g/dl (32.0-37.0) Red Cell Distribution Width 11.7% (11.5-14.5) Platelet Count 29263^3/UL (140-415) Mean Platelet Volume 11.4fl (7.4-10.4) Neutrophils % 69.0% (39.0-77.0) Lymphocytes % 21.7% (15.0-51.0) Monocytes % 7.2% (0.0-11.0) Eosinophils % 1.5% (0.0-7.0) Basophils % 0.3% (0.0-2.0) Nucleated Red Blood Cells % 0.0/100WBC (0.0-0.0) Neutrophils # 4.110^3/ul (1.6-7.5) Lymphocytes # 1.310^3/ul (0.8-2.9) Monocytes # 0.410^3/ul (0.3-0.9) Eosinophils # 0.110^3/ul (0.0-0.5) Basophils # 0.010^3/ul (0.0-0.1) Nucleated Red Blood Cells # 0.010^3/ul (0.0-0.0) Sodium Level 140mmol/L (135-144) Potassium Level 3.7mmol/L (3.5-5.1) Chloride Level 104mmol/L (97-110) Carbon Dioxide Level 23mmol/L (21-31) Anion Gap 17 (8-16) Blood Urea Nitrogen 19mg/dl (7-20) Creatinine 0.83mg/dl (0.61-1.24) Glucose Level 72mg/dl (70-220) Calcium Level 8.4mg/dl (8.4-10.2) Phosphorus Level 3.8mg/dl (2.5-4.9) Magnesium Level 1.8mg/dl (1.7-2.5) Bedside Glucose 151mg/dL (70-220) Microbiology Date/Time Source Procedure Growth Status 07/25/17 20:00 Nares MRSA Screen - Preliminary Screening in process Resulted ELVIRA SHERMAN NP Jul 26, 2017 14:15
--- NOTE | 2017-07-26 14:15 | DS ---
Date/Time of Note Date/Time of Note DATE: 07/26/17 TIME: 14:15 Discharge Summary Admission/Discharge Info Discharge Date/Time Home Meds Active Scripts Aspirin* (Aspirin* EC) 81 Mg Tablet., 81 MG PO DAILY, #30 TAB Prov:ELVIRA SHERMAN NP 07/26/17 Isosorbide Dinitrate* (Isordil*) 10 Mg Tablet, 10 MG PO TID, #90 TAB Prov:ELVIRA SHERMAN NP 07/26/17 Metoprolol Tartrate* (Lopressor*) 25 Mg Tab, 12.5 MG PO BID, #60 TAB Prov:SHIELA MCLEOD 05/11/17 Reported Medications Clopidogrel Bisulfate* (Clopidogrel Bisulfate*) 75 Mg Tablet, 75 MG PO DAILY, # 30 TAB 05/08/17 Atorvastatin* (Atorvastatin*) 40 Mg Tablet, 40 MG PO QHS, #30 TAB 05/08/17 Discontinued Reported Medications Aspirin* (Aspirin* EC) 325 Mg Tab, 325 MG PO DAILY, TAB 05/08/17 Primary Care Provider ELVIRA SHERMAN NP Jul 26, 2017 14:15 eluting stent along with successful angioplasty of the ostium of the diagonal 1. Continue dual antiplatelet therapy. 2. Coronary artery disease. Status post multiple coronary stents. Continue aspirin, Plavix, statins, and beta blockers. 3. Dyslipidemia. Continue statins. 4. Prediabetes. Hemoglobin A1c 6.2. Will monitor random blood glucose levels. If the patient's blood glucose levels continue to run high, will start appropriate treatment. 5. Essential hypertension. Continue antihypertensives. 6. Fluids, electrolytes, and nutrition. Low cholesterol diet. 7. DVT prophylaxis. Bilateral sequential compression devices. 8. Plan. Continue current management. Transfer out of ICU once cleared by Cardiology. Case discussed with Dr. Cortes. Critical care time: 35 minutes. Home Meds Active Scripts Aspirin* (Aspirin* EC) 81 Mg Tablet., 81 MG PO DAILY, #30 TAB Prov:ELVIRA SHERMAN NP 07/26/17 Isosorbide Dinitrate* (Isordil*) 10 Mg Tablet, 10 MG PO TID, #90 TAB Prov:ELVIRA SHERMAN NP 07/26/17 Metoprolol Tartrate* (Lopressor*) 25 Mg Tab, 12.5 MG PO BID, #60 TAB Prov:SHIELA MCLEOD 05/11/17 Reported Medications Clopidogrel Bisulfate* (Clopidogrel Bisulfate*) 75 Mg Tablet, 75 MG PO DAILY, # 30 TAB 05/08/17 Atorvastatin* (Atorvastatin*) 40 Mg Tablet, 40 MG PO QHS, #30 TAB 05/08/17 Discontinued Reported Medications Aspirin* (Aspirin* EC) 325 Mg Tab, 325 MG PO DAILY, TAB 05/08/17 Follow-up Plan Trae Araiza MD Specialty Cardiology Office Address [address] [facility] [address] [place] [address] Office Primary Care Provider Alen Anderson Pending Labs Laboratory Tests Test 07/25/17 20:15 07/26/17 00:39 07/26/17 04:41 07/26/17 06:52 Creatine Kinase 52IU/L (23-200) 52IU/L (23-200) Creatine Kinase Index 1.3 1.4 Creatinine Kinase MB (Mass) 0.68ng/ml (0.0-2.4) 0.74ng/ml (0.0-2.4) Troponin I 0.016ng/ml (0.00-0.12) 0.020ng/ml (0.00-0.12) White Blood Count 6.010^3/ul (4.8-10.8) Red Blood Count 4.0110^6/ul (4.70-6.10) Hemoglobin 12.6g/dl (14.0-18.0) Hematocrit 38.1% (42.0-52.0) Mean Corpuscular Volume 95.0fl (82.0-101.0) Mean Corpuscular Hemoglobin 31.4pg (29.0-33.0) Mean Corpuscular Hemoglobin Concent 33.1g/dl (32.0-37.0) Red Cell Distribution Width 11.7% (11.5-14.5) Platelet Count 63748^3/UL (140-415) Mean Platelet Volume 11.4fl (7.4-10.4) Neutrophils % 69.0% (39.0-77.0) Lymphocytes % 21.7% (15.0-51.0) Monocytes % 7.2% (0.0-11.0) Eosinophils % 1.5% (0.0-7.0) Basophils % 0.3% (0.0-2.0) Nucleated Red Blood Cells % 0.0/100WBC (0.0-0.0) Neutrophils # 4.110^3/ul (1.6-7.5) Lymphocytes # 1.310^3/ul (0.8-2.9) Monocytes # 0.410^3/ul (0.3-0.9) Eosinophils # 0.110^3/ul (0.0-0.5) Basophils # 0.010^3/ul (0.0-0.1) Nucleated Red Blood Cells # 0.010^3/ul (0.0-0.0) Sodium Level 140mmol/L (135-144) Potassium Level 3.7mmol/L (3.5-5.1) Chloride Level 104mmol/L (97-110) Carbon Dioxide Level 23mmol/L (21-31) Anion Gap 17 (8-16) Blood Urea Nitrogen 19mg/dl (7-20) Creatinine 0.83mg/dl (0.61-1.24) Glucose Level 72mg/dl (70-220) Calcium Level 8.4mg/dl (8.4-10.2) Phosphorus Level 3.8mg/dl (2.5-4.9) Magnesium Level 1.8mg/dl (1.7-2.5) Bedside Glucose 151mg/dL (70-220) Microbiology Date/Time Source Procedure Growth Status 07/25/17 20:00 Nares MRSA Screen - Preliminary Screening in process Resulted ELVIRA SHERMAN NP Jul 26, 2017 14:15
--- NOTE | 2017-07-28 09:23 | DS ---
DATE OF ADMISSION: 07/24/2017 DATE OF DISCHARGE: 07/26/2017 FINAL DIAGNOSES: 1. Acute coronary syndrome. Status post left heart catheterization with PTCA and stenting of proximal to mid LAD, along with successful angioplasty of the ostium of the diagonal 1. 2. Coronary artery disease. 3. Dyslipidemia. 4. Prediabetes. Hemoglobin A1c 6.2. 5. Essential hypertension. BURR BENCH HAND: Dr. Trae Araiza, Cardiology. HOSPITAL COURSE: This is a 61-year-old male with past medical history of CAD with multiple stenting. He came to the emergency room with a chief complaint of chest pain as well as dyspnea. The patient had a previous coronary angiogram in April 2017, where he had a stent placed to the distal left circumflex artery. At that time, the patient was noticed to have LAD disease. Consequently, the patient was told to have intervention to the LAD done at a later date. The patient was taken to the animal laboratory helper and the patient underwent a left heart catheterization with successful PTCA and stenting of the proximal to mid LAD using a drug-eluting stent, with angioplasty of the ostium of the diagonal 1. Post procedure, the patient was moved to intensive care unit for close monitoring. The acetylene torch solderer used a right femoral approach. The patient was maintained on dual antiplatelet therapy along with statins and beta blockers. The patient was also started on nitrates as per the acetylene torch solderer. The patient has underlying dyslipidemia. He was maintained on statins for the same. He has underlying essential hypertension. Has maintained on antihypertensives. The patient was noticed to have pre diabetes with a hemoglobin A1c of 6.2. The patient was advised for a low carbohydrate diet. The patient had a stable hospital course. The patient was cleared by Cardiology to be discharged home. The patient denied any complaints at the time of discharge. DISCHARGE DISPOSITION/PLAN: The patient will be discharged home today. The patient was instructed to follow a low cholesterol and low carbohydrate diet. He was instructed to take medications as per prescription. He was instructed not to stop taking aspirin and Plavix unless he talks to his acetylene torch solderer. He was instructed to resume activities as tolerated and slowly increase activity. He was instructed to follow up with Dr. Araiza in 2 weeks. He was instructed to call 911 or go to the nearest emergency room if he continues to have any chest pain or significant shortness of breath. The patient verbalized understanding of his discharge instructions. DISCHARGE CONDITION: Stable. DISCHARGE MEDICATIONS: 1. Aspirin 81 mg p.o. daily. 2. Plavix 75 mg p.o. daily. 3. Isordil 10 mg p.o. t.i.d. 4. Lipitor 40 mg p.o. at bedtime. 5. Lopressor 12.5 mg p.o. b.i.d. PERTINENT LAB AND PROCEDURES: 1. Left heart catheterization with successful PTCA and stenting of proximal to mid LAD using a 3 x 28-mm Fran drug-eluting stent. Successful angioplasty of the ostium of the diagonal 1. 2. Latest CBC with WBC 6, hemoglobin 12.6, hematocrit 38.1, platelet count 155. 3. Latest BMP with sodium 140, potassium 3.7, chloride 104. Carbonate 23. Anion gap of 17. BUN 19, creatinine 0.83, glucose 72, calcium 8.4, phosphorus 3.8, magnesium 1.8. 4. Hemoglobin A1c 6.2. 5. Fasting lipid panel with triglycerides 69, total cholesterol 119, LDL 56, HDL 49. At this time I would like to thank Dr. Araiza for seeing the patient, doing the necessary procedures, and providing clinical recommendations. The case and management of this patient was fully discussed with Dr. Cortes. Approximately 40 minutes was spent on coordinating the discharge on this patient. Dictated By: Darren Tabares NP /ewa/antonette /Document#: [id number] STEVEN
--- NOTE | 2017-07-28 09:23 | DS ---
DATE OF ADMISSION: 07/24/2017 DATE OF DISCHARGE: 07/26/2017 FINAL DIAGNOSES: 1. Acute coronary syndrome. Status post left heart catheterization with PTCA and stenting of proximal to mid LAD, along with successful angioplasty of the ostium of the diagonal 1. 2. Coronary artery disease. 3. Dyslipidemia. 4. Prediabetes. Hemoglobin A1c 6.2. 5. Essential hypertension. COUNT ROOM CLERK: Dr. Trae Araiza, Cardiology. HOSPITAL COURSE: This is a 61-year-old male with past medical history of CAD with multiple stenting. He came to the emergency room with a chief complaint of chest pain as well as dyspnea. The patient had a previous coronary angiogram in April 2017, where he had a stent placed to the distal left circumflex artery. At that time, the patient was noticed to have LAD disease. Consequently, the patient was told to have intervention to the LAD done at a later date. The patient was taken to the catheter builder and the patient underwent a left heart catheterization with successful PTCA and stenting of the proximal to mid LAD using a drug-eluting stent, with angioplasty of the ostium of the diagonal 1. Post procedure, the patient was moved to intensive care unit for close monitoring. The chuck wagon cook used a right femoral approach. The patient was maintained on dual antiplatelet therapy along with statins and beta blockers. The patient was also started on nitrates as per the chuck wagon cook. The patient has underlying dyslipidemia. He was maintained on statins for the same. He has underlying essential hypertension. Has maintained on antihypertensives. The patient was noticed to have pre diabetes with a hemoglobin A1c of 6.2. The patient was advised for a low carbohydrate diet. The patient had a stable hospital course. The patient was cleared by Cardiology to be discharged home. The patient denied any complaints at the time of discharge. DISCHARGE DISPOSITION/PLAN: The patient will be discharged home today. The patient was instructed to follow a low cholesterol and low carbohydrate diet. He was instructed to take medications as per prescription. He was instructed not to stop taking aspirin and Plavix unless he talks to his chuck wagon cook. He was instructed to resume activities as tolerated and slowly increase activity. He was instructed to follow up with Dr. Araiza in 2 weeks. He was instructed to call 911 or go to the nearest emergency room if he continues to have any chest pain or significant shortness of breath. The patient verbalized understanding of his discharge instructions. DISCHARGE CONDITION: Stable. DISCHARGE MEDICATIONS: 1. Aspirin 81 mg p.o. daily. 2. Plavix 75 mg p.o. daily. 3. Isordil 10 mg p.o. t.i.d. 4. Lipitor 40 mg p.o. at bedtime. 5. Lopressor 12.5 mg p.o. b.i.d. PERTINENT LAB AND PROCEDURES: 1. Left heart catheterization with successful PTCA and stenting of proximal to mid LAD using a 3 x 28-mm Fran drug-eluting stent. Successful angioplasty of the ostium of the diagonal 1. 2. Latest CBC with WBC 6, hemoglobin 12.6, hematocrit 38.1, platelet count 155. 3. Latest BMP with sodium 140, potassium 3.7, chloride 104. Carbonate 23. Anion gap of 17. BUN 19, creatinine 0.83, glucose 72, calcium 8.4, phosphorus 3.8, magnesium 1.8. 4. Hemoglobin A1c 6.2. 5. Fasting lipid panel with triglycerides 69, total cholesterol 119, LDL 56, HDL 49. At this time I would like to thank Dr. Araiza for seeing the patient, doing the necessary procedures, and providing clinical recommendations. The case and management of this patient was fully discussed with Dr. Cortes. Approximately 40 minutes was spent on coordinating the discharge on this patient. Dictated By: Darren Tabares NP /ewa/antonette /Document#: [id number] STEVEN
--- NOTE | 2017-07-29 14:50 | RADRPT ---
Vent Rate: 66 bpm RR Interval: 0 msec MD Interval: 196 msec QRS Duration: 96 msec QT Interval: 422 msec QTC Interval: 442 msec P-R-T [place]: 75 - -26 - -6 degrees Normal sinus rhythm Inferior infarct , age undetermined Abnormal ECG Electronically Signed By: Colin Forde [id number]
--- NOTE | 2017-07-29 14:50 | RADRPT ---
Vent Rate: 66 bpm RR Interval: 0 msec FL Interval: 196 msec QRS Duration: 96 msec QT Interval: 422 msec QTC Interval: 442 msec P-R-T [place]: 75 - -26 - -6 degrees Normal sinus rhythm Inferior infarct , age undetermined Abnormal ECG Electronically Signed By: Colin Forde [id number]
== END 2017-07-26 15:00 | disposition home or self-care (01) | DRG 247 ==
LOC: E/R 18:31 → MS4 21:23 → ICU 07-25 19:50
PROVIDERS: ADMIT Family Medicine; ATTEND Family Medicine
PROC: 4A023N7 Measurement of Cardiac Sampling and Pressure, Left Heart, Percutaneous Approach (ICD-10-PCS; 2017-07-25)
PROC: B211YZZ Fluoroscopy of Multiple Coronary Arteries using Other Contrast (ICD-10-PCS; 2017-07-25)
PROC: B215YZZ Fluoroscopy of Left Heart using Other Contrast (ICD-10-PCS; 2017-07-25)
PROC: 027034Z Dilation of Coronary Artery, One Artery with Drug-eluting Intraluminal Device, Percutaneous Approach (ICD-10-PCS; principal; 2017-07-25 17:00)
PROC: 02703ZZ Dilation of Coronary Artery, One Artery, Percutaneous Approach (ICD-10-PCS; 2017-07-25 17:00)
DX: I25.110 Atherosclerotic heart disease of native coronary artery with unstable angina pectoris (principal); I10 Essential (primary) hypertension; E78.5 Hyperlipidemia, unspecified; R73.03 Prediabetes; I25.2 Old myocardial infarction; Z95.5 Presence of coronary angioplasty implant and graft
CPT/HCPCS: 71010; 80048; 80053; 80061; 82550; 82553; 82962; 83036; 83690; 83735; 83880; 84100; 84443; 84484; 85025; 87081; 92921; 93005; 93458; 96374; C1725; C1760; C1887; C1894; C9600; J1644; J1940; J2250; J3010; J7030; Q9967